=== PATIENT | male | born 1990 ===

== ENCOUNTER 2022-06-30 20:02 | Inpatient (IN) | payer MEDICAID ==
[2022-06-30] MEDS ORDERED: VANCOMYCIN 1,250 MG in SODIUM CHLORIDE 0.9% 250ML 250 ML IV ONE (22:35)
[2022-06-30] MEDS ORDERED: CEFEPIME/NS 2 GM/100 ML 2 GM/100 ML BAG IV ONE (22:35)
[2022-06-30] MEDS ORDERED: SODIUM CHLORIDE 0.9% 1000 ML IV SOLN IV ONE (22:35)
[2022-06-30] MEDS ORDERED: ONDANSETRON 4 MG/2 ML INJ IV ONE (22:36)
[2022-06-30] MEDS ORDERED: MORPHINE 4 MG/1 ML INJ IV ONE (22:36)
--- NOTE | 2022-06-30 22:42 | Emergency Department Report ---
ED General Adult HPI - General Chief complaint: Nausea/Vomiting/Diarrhea Stated complaint: NAUSEA, FEVER Time Seen by Provider: 06/30/22 21:48 Source: family (Verbal report received from family.), EMS ( EMS documentation not available at time of chart dictation ), RN notes reviewed Mode of arrival: Stretcher Limitations: Altered Mental Status, Physical Limitation - History of Present Illness Initial comments: This patient is a 31-year-old gentleman. 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 The patient was admitted to [facility], on October 22, as an out of hospital cardiac arrest from presumed overdose. It is not known if the overdose was deliberate, or accidental. The patient stayed in the hospital for 8 months, and as per family, had a complicated hospital course. He reportedly had a blood clot in one of his upper extremities, had a tracheostomy and feeding tube placed. Family uncertain as to COVID vaccination status. As per family, patient has had sepsis, complicated by pneumonia, uncertain what cultures demonstrated. Patient has been home from [place] with family, since last week. Current home medications include diltiazem, Depakote, phenytoin, Reglan, omeprazole, aspirin, lacosamide, topiramate, eliquis, multivitamin. History obtained from family member. Apparently, the patient has been having tachycardia at home, with a fever to 103 degrees, and had relatively low blood pressure, in the high 90s. This is as per family. Family also feels like abdomen is more distended. The patient is nonverbal, and not able to describe the qualitative nature of symptoms, exacerbating factors relieving factors or aggravating factors. Family also endorses that they feel that he may have been inappropriately discharged from his hospital, as currently, the home services that are supposed to be in place for this patient, are not currently in place -: This afternoon Consistency: intermittent Improves with: none Worsens with: none - Related Data Allergies Allergy/AdvReac Type Severity Reaction Status Date / Time shellfish derived Allergy Hives Verified 06/30/22 21:25 ED Review of Systems ROS: Stated complaint: NAUSEA, FEVER Other details as noted in HPI Comment: Unobtainable due to pts medical conditions Constitutional: chills, fever Gastrointestinal: as per HPI ED Physical Exam - General Limitations: Altered Mental Status, Physical Limitation General appearance: obtunded, other (Mental status at baseline as per) - Head Head exam: Present: atraumatic, normocephalic - Eye Eye exam: Present: normal appearance - ENT ENT exam: Present: normal exam, normal orophraynx, mucous membranes moist, normal external ear exam, other (Tracheostomy in place.) - Neck Neck exam: Present: normal inspection. Absent: tenderness, meningismus - Respiratory Respiratory exam: Present: rhonchi. Absent: respiratory distress - Cardiovascular Cardiovascular Exam: Present: normal rhythm, tachycardia, normal heart sounds. Absent: bradycardia, irregular rhythm, systolic murmur, diastolic murmur, rubs, gallop - GI/Abdominal GI/Abdominal exam: Present: soft, distended, other (Feeding tube in place). Absent: tenderness, guarding, rebound, rigid, pulsatile mass - Rectal Rectal exam: Present: normal inspection - exam: Present: normal inspection External exam: Present: normal external exam - Extremities Exam Extremities exam: Present: normal inspection, other (2+ pulses noted in the bilateral upper and lower extremities. There is no palpable cord. negative Homans sign. Muscular compartments are soft. The pelvis is stable.). Absent: calf tenderness - Back Exam Back exam: Present: normal inspection. Absent: tenderness, CVA tenderness (R), CVA tenderness (L), paraspinal tenderness, vertebral tenderness - Neurological Exam Neurological exam: Present: other (The patient is nonverbal. Patient's eyes open spontaneously. The patient has anoxic brain injury.) - Psychiatric Psychiatric exam: Present: other (Patient is nonverbal) - Skin Skin exam: Present: warm, other (Pressure wounds noted on the back/scapula). Absent: rash ED Course Vital Signs 06/30/22 06/30/22 06/30/22 21:15 21:20 21:23 Temperature 98.6 F Pulse Rate 71 80 Respiratory 19 18 Rate Blood Pressure Blood Pressure 107/78 [Right] O2 Sat by Pulse 96 99 94 Oximetry O2 Sat by Pulse Oximetry [ Assessment] 06/30/22 06/30/22 06/30/22 21:30 21:46 22:00 Temperature Pulse Rate 81 85 81 Respiratory 20 18 19 Rate Blood Pressure 107/78 117/78 117/78 Blood Pressure [Right] O2 Sat by Pulse 100 92 95 Oximetry O2 Sat by Pulse Oximetry [ Assessment] 06/30/22 07/01/22 07/01/22 22:09 01:01 01:04 Temperature 98.1 F Pulse Rate Respiratory Rate Blood Pressure Blood Pressure [Right] O2 Sat by Pulse 96 Oximetry O2 Sat by Pulse 96 Oximetry [ Assessment] - Reevaluation(s) Reevaluation #1: 07/01/22 00:22 Differential diagnosis, including not limited to: Bacteremia, viremia, obstruction, perforation, colitis, diverticulitis, COVID-19 Assessment and plan: 31-year-old gentleman, nonverbal, history of anoxic brain injury, poor functional status at baseline, brought to the hospital by family with a family articulated complaint of fever, tachycardia, low blood pressure. Currently a full code. Long-term prognosis very poor. Obtain appropriate laboratory studies. Start IV fluids, vancomycin and cefepime. Obtain x-ray of the chest, CT scan of the abdomen pelvis. Reassess. Anticipate admission to the medical service. Defer to inpatient team to contact case management, to assist with social needs, after patient has been medically optimized. Discussed the plan of care with the family members. They are agreeable to the plan of care. All questions have been answered 07/01/22 01:45 Transaminitis reviewed and appreciated. Elevated troponin appreciated. EKG limited by motion artifact. Secondary to patient's underlying habitus, and past medical issues, we are not able to obtain a higher quality EKG. This may be a type I or type II troponin leak. I favor a type II leak. Family updated. Currently awaiting CT scan abdomen pelvis results. 07/01/22 02:20 CT scan suggests right-sided pneumonia. Family updated. They believe that transaminitis is chronic. They also believe that nonspecific bony lesions for possible multiple myeloma are chronic. To the best of family's recollection, has not been worked up for multiple myeloma. Hospital physician, Dr. Ann Villavicencio to admit to [facility] ED Medical Decision Making - Lab Data Result diagrams: 06/30/22 23:49 06/30/22 23:49 Vital Signs 06/30/22 06/30/22 06/30/22 21:15 21:20 21:23 Temperature 98.6 F Pulse Rate 71 80 Respiratory 19 18 Rate Blood Pressure Blood Pressure 107/78 [Right] O2 Sat by Pulse 96 99 94 Oximetry 06/30/22 06/30/22 06/30/22 21:30 21:46 22:00 Temperature Pulse Rate 81 85 81 Respiratory 20 18 19 Rate Blood Pressure 107/78 117/78 117/78 Blood Pressure [Right] O2 Sat by Pulse 100 92 95 Oximetry 06/30/22 22:09 Temperature 98.1 F Pulse Rate Respiratory Rate Blood Pressure Blood Pressure [Right] O2 Sat by Pulse Oximetry - EKG Data 07/01/22 01:45 EKG is limited by motion artifact. Not able to obtain higher quality EKG, secondary to underlying medical issues. - Radiology Data Radiology results: pending, report reviewed, image reviewed CHEST 1 VIEW 06/30/2022 10:46 PM INDICATION / CLINICAL INFORMATION: fever sepsis. COMPARISON: None available. FINDINGS: SUPPORT DEVICES: Satisfactory tracheostomy cannula position. HEART / MEDIASTINUM: No significant abnormality. LUNGS / PLEURA: Mild right basilar consolidation favored to represent atelectasis and questionable trace right basilar pleural effusion. No definite evidence for pneumonia. No large pleural effusion. ADDITIONAL FINDINGS: None IMPRESSION: 1. Mild right basilar consolidation favored to represent atelectasis and questionable trace right basilar pleural effusion. 2. Satisfactory tracheostomy cannula position. Signer Name: Prosper Demarco MD Signed: 06/30/2022 10:[address] ABDOMEN AND PELVIS WITH CONTRAST INDICATION / CLINICAL INFORMATION: Abdominal distention with fever. TECHNIQUE: Axial CT images were obtained through the abdomen and pelvis after IV contrast. All CT scans at this location are performed using CT dose reduction for ALARA by means of automated exposure control. COMPARISON: Chest radiograph from today FINDINGS: LOWER CHEST: Right lower lobe consolidation with enhancement and volume loss consistent with atelectasis. This involves nearly the entirety of the right lower lobe with multiple segments involved. Small right basilar pleural effusion. Left basilar subsegmental atelectasis and trace effusion. LIVER: No significant abnormality. GALLBLADDER/BILIARY: No significant abnormality or evidence for biliary obstruction. PANCREAS: No significant abnormality. SPLEEN: No significant abnormality. ADRENALS: No significant abnormality. KIDNEYS/URETERS: No urolithiasis, hydronephrosis, solid renal mass or other significant abnormality. GI: No acute bowel inflammation, obstruction or evidence for ischemia. Indwelling percutaneous gastrostomy tube appears appropriately positioned. APPENDIX: No significant abnormality. PERITONEUM: No pneumoperitoneum, free peritoneal fluid or loculated fluid collection. LYMPH NODES: No significant adenopathy. AORTA / ARTERIES: No significant abnormality. URINARY BLADDER: No significant abnormality. REPRODUCTIVE ORGANS: No significant abnormality. SKELETAL SYSTEM: Abnormal appearance of the proximal femurs and pelvis with heterogeneous corticomedullary attenuation and questionable numerous small lytic lesions. This also involves the partially visualized right humeral diaphysis. Mild T12 vertebral body height loss associated with a superior endplate Schmorl's node without pathologic fracture identified. ADDITIONAL FINDINGS: Bila teral retroareolar gynecomastia. IMPRESSION: 1. No acute abdominopelvic process. 2. Confluent multisegmental right lower lobe atelectasis and left basilar subsegmental atelectasis. Given the history of sepsis, a component of superimposed right lower lobe pneumonia may be present. 3. Trace right greater than left basilar pleural effusions. 4. Abnormal corticomedullary osseous attenuation, most notably involving the proximal femurs, with either tiny lytic lesions or profound osteopenia. The primary concern is for multiple myeloma, therefore serum laboratory correlation is recommended to exclude a monoclonal gammopathy. Signer Name: Prosper Demarco MD Signed: 07/01/2022 12:57 AM Workstation Name: [email or web address] Critical care attestation.: If time is entered above; I have spent that time in minutes in the direct care of this critically ill patient, excluding procedure time. ED Disposition Clinical Impression: History of anoxic brain injury, History of fever, Abdominal distention, Pulmonary infiltrate Disposition: ADMITTED INPATIENT Is pt being admited?: Yes Does the pt Need Aspirin: No Condition: Fair Referrals: PRIMARY CARE, [Primary Care Provider] - 3-5 Days
[2022-06-30] MEDS ORDERED: VANCOMYCIN PHARMACY TO DOSE IV SCH (23:00)
--- NOTE | 2022-06-30 23:52 | XRay Report ---
CHEST 1 VIEW 06/30/2022 10:46 PM INDICATION / CLINICAL INFORMATION: fever sepsis. COMPARISON: None available. FINDINGS: SUPPORT DEVICES: Satisfactory tracheostomy cannula position. HEART / MEDIASTINUM: No significant abnormality. LUNGS / PLEURA: Mild right basilar consolidation favored to represent atelectasis and questionable tr susan right basilar pleural effusion. No definite evidence for pneumonia. No large pleural effusion. ADDITIONAL FINDINGS: None IMPRESSION: 1. Mild right basilar consolidation favored to represent atelectasis and questionable trace right bas ilar pleural effusion. 2. Satisfactory tracheostomy cannula position. Signer Name: Prosper Demarco MD Signed: 06/30/2022 11:47 PM Workstation Name: [email or web address]
[2022-07-01 00:14] LABS: Basophils # (Auto) 0.1 K/mm3 (0.0-0.1); Basophils % (Auto) 0.4 % (0.0-1.8); Eosinophils # (Auto) 0.1 K/mm3 (0.0-0.4); Eosinophils % (Auto) 0.7 % (0.0-4.3); Hematocrit 33.5 % (35.5-45.6); Lymphocytes # (Auto) 2.7 K/mm3 (1.2-5.4); Lymphocytes % (Auto) 14.4 % (13.4-35.0); Mean Corpuscular HGB Conc 33 % (32-34); Mean Corpuscular Volume 91 fl (84-94); Monocytes # (Auto) 2.9 K/mm3 (0.0-0.8); Monocytes % (Auto) 15.8 % (0.0-7.3); Red Blood Count 3.67 M/mm3 (3.65-5.03)
[2022-07-01 00:24] LABS: INR 1.14 (0.87-1.13)
[2022-07-01 00:25] LABS: Partial Thromboplastin Time 33.7 Sec. (24.2-36.6)
[2022-07-01 00:40] LABS: Alanine Aminotransferase 135 units/L (7-56); Albumin 3.4 g/dL (3.9-5); Blood Urea Nitrogen 13 mg/dL (9-20); Calcium 10.2 mg/dL (8.4-10.2); Hemolysis Index 99
[2022-07-01 00:41] LABS: BUN/Creatinine Ratio 22
[2022-07-01 01:13] LABS: Platelet Count 471 K/mm3 (140-440)
--- NOTE | 2022-07-01 02:01 | Cat Scan Report ---
CT ABDOMEN AND PELVIS WITH CONTRAST INDICATION / CLINICAL INFORMATION: Abdominal distention with fever. TECHNIQUE: Axial CT images were obtained through the abdomen and pelvis after IV contrast. All CT sc ans at this location are performed using CT dose reduction for ALARA by means of automated exposure c ontrol. COMPARISON: Chest radiograph from today FINDINGS: LOWER CHEST: Right lower lobe consolidation with enhancement and volume loss consistent with atelecta sis. This involves nearly the entirety of the right lower lobe with multiple segments involved. Small right basilar pleural effusion. Left basilar subsegmental atelectasis and trace effusion. LIVER: No significant abnormality. GALLBLADDER/BILIARY: No significant abnormality or evidence for biliary obstruction. PANCREAS: No significant abnormality. SPLEEN: No significant abnormality. ADRENALS: No significant abnormality. KIDNEYS/URETERS: No urolithiasis, hydronephrosis, solid renal mass or other significant abnormality. GI: No acute bowel inflammation, obstruction or evidence for ischemia. Indwelling percutaneous gastro stomy tube appears appropriately positioned. APPENDIX: No significant abnormality. PERITONEUM: No pneumoperitoneum, free peritoneal fluid or loculated fluid collection. LYMPH NODES: No significant adenopathy. AORTA / ARTERIES: No significant abnormality. URINARY BLADDER: No significant abnormality. REPRODUCTIVE ORGANS: No significant abnormality. SKELETAL SYSTEM: Abnormal appearance of the proximal femurs and pelvis with heterogeneous corticomedu llary attenuation and questionable numerous small lytic lesions. This also involves the partially vis ualized right humeral diaphysis. Mild T12 vertebral body height loss associated with a superior endpl ate Schmorl's node without pathologic fracture identified. ADDITIONAL FINDINGS: Bilateral retroareolar gynecomastia. IMPRESSION: 1. No acute abdominopelvic process. 2. Confluent multisegmental right lower lobe atelectasis and left basilar subsegmental atelectasis. G iven the history of sepsis, a component of superimposed right lower lobe pneumonia may be present. 3. Trace right greater than left basilar pleural effusions. 4. Abnormal corticomedullary osseous attenuation, most notably involving the proximal femurs, with ei ther tiny lytic lesions or profound osteopenia. The primary concern is for multiple myeloma, therefor e serum laboratory correlation is recommended to exclude a monoclonal gammopathy. Signer Name: Prosper Demarco MD Signed: 07/01/2022 1:57 AM Workstation Name: [id number]
[2022-07-01] MEDS ORDERED: ONDANSETRON 4 MG/2 ML INJ IV PRN (02:23)
[2022-07-01] MEDS ORDERED: NALOXONE 0.4 MG/1 ML INJ IV PRN (02:23)
[2022-07-01 02:45] LABS: Chol/HDL Ratio 4.68 %; HDL Cholesterol 35 mg/dL (40-59); LDL Cholesterol,Direct 94 mg/dL (50-130)
[2022-07-01] MEDS ORDERED: MORPHINE 4 MG/1 ML INJ IV PRN (04:39)
[2022-07-01] MEDS ORDERED: MAGNESIUM HYDROXIDE (MOM) ORAL LIQD UDC PO PRN (04:39)
[2022-07-01] MEDS ORDERED: SODIUM CHLORIDE 0.9% 1000 ML 1,000 ML IV SCH (04:45)
--- NOTE | 2022-07-01 04:55 | History and Physical Report ---
History of Present Illness Date of examination: 07/01/22 Date of admission: 07/01/22 02:23 Chief complaint: Fever History of present illness: 20-year-old male with history of anoxic brain injury who is PEG tube dependent and trach dependent presenting in the emergency room today accompanied by family with a complaint of fever. Patient recently moved from [place] to [place]. He was admitted at [facility] sometime in October 2021. Patient was said to have spent about 8 months in the hospital. His hospital course was complicated by sepsis, pneumonia. He has been home from [place] for about a week ago started having fever over the past few days. Most of the history was obtained from family were by the bedside. Patient is said to have been having some nausea and vomiting and abdominal pain. He had a temperature of about 103 F. There has been no diarrhea. No hematuria or dysuria. Patient's COVID immunization status is unknown. Work-up in the emergency room today, labs were significant for leukocytosis of 18.5, elevated liver enzymes with AST of 69 and ALT of 135, troponin 0.128. Chest x-ray significant for mild right basilar consolidation favored to represent atelectasis and questionable trace right basilar pleural effusion. Abdomen/Pelvis CT : 1. No acute abdominopelvic process. 2. Confluent multisegmental right lower lobe atelectasis and left basilar subsegmental atelectasis. Given the history of sepsis, a component of superimposed right lower lobe pneumonia may be present. 3. Trace right greater than left basilar pleural effusions. 4. Abnormal corticomedullary osseous attenuation, most notably involving the proximal femurs, with either tiny lytic lesions or profound osteopenia. The primary concern is for multiple myeloma, therefore serum laboratory correlation is recommended to exclude a monoclonal gammopathy. Patient has been placed on empiric IV antibiotics and IV fluid. Past History Past Medical History: other (H/O Drug Overdose) Past Surgical History: Other (Peg tube placement,Trach placement) Social history: no significant social history Family history: no significant family history Medications and Allergies Allergies Allergy/AdvReac Type Severity Reaction Status Date / Time shellfish derived Allergy Hives Verified 06/30/22 21:25 Active Meds: Active Medications Acetaminophen (Acetaminophen 325 Mg Tab) 650 mg PO Q4H PRN PRN Reason: Pain MILD(1-3)/Fever >100.5/BOWER Heparin Sodium (Porcine) (Heparin 5,000 Unit/1 Ml Vial) 5,000 unit SUB-Q Q8HR SHILA Sodium Chloride (Nacl 0.9% 1000 Ml) 1,000 mls @ 125 mls/hr IV DIRECT SHILA Cefepime HCl (Cefepime/Ns 2 Gm/100 Ml) 2 gm in 100 mls @ 200 mls/hr IV Q8H SHILA; Protocol Magnesium Hydroxide (Magnesium Hydroxide (Mom) Oral Liqd Udc) 30 ml PO Q4H PRN PRN Reason: Constipation Morphine Sulfate (Morphine 2 Mg/1 Ml Inj) 2 mg IV Q4H PRN PRN Reason: Pain, Moderate (4-6) Morphine Sulfate (Morphine 4 Mg/1 Ml Inj) 4 mg IV Q4H PRN PRN Reason: Pain , Severe (7-10) Naloxone HCl (Naloxone 0.4 Mg/1 Ml Inj) 0.1 mg IV Q2MIN PRN PRN Reason: Res Rate </= 8 or 02 SAT < 92% Ondansetron HCl (Ondansetron 4 Mg/2 Ml Inj) 4 mg IV Q8H PRN PRN Reason: Nausea And Vomiting Sodium Chloride (Sodium Chloride 0.9% 10 Ml Flush Syringe) 10 ml IV BID SHILA Sodium Chloride (Sodium Chloride 0.9% 10 Ml Flush Syringe) 10 ml IV PRN PRN PRN Reason: LINE FLUSH Review of Systems ROS unobtainable: due to mental status Exam - Constitutional Vitals: Temp Pulse Resp BP Pulse Ox 98.1 F 90 21 118/77 100 06/30/22 22:09 07/01/22 04:30 07/01/22 04:30 07/01/22 04:30 07/01/22 04:39 General appearance: Present: no acute distress, well-nourished, other (On Trach) - EENT Eyes: Present: PERRL, EOM intact. Absent: scleral icterus ENT: hearing intact, clear oral mucosa, dentition normal - Neck Neck: Present: supple, normal ROM - Respiratory Respiratory effort: normal Respiratory: bilateral: diminished - Cardiovascular Rhythm: regular Heart Sounds: Present: S1 & S2. Absent: gallop, systolic murmur, diastolic murmur, rub, click - Extremities Extremities: no ischemia, pulses intact, pulses symmetrical, No edema, normal temperature, normal color, Full ROM Peripheral Pulses: within normal limits - Abdominal General gastrointestinal: Present: soft, non-tender, non-distended, normal bowel sounds, other (Peg tube in place). Absent: mass - Integumentary Integumentary: Present: clear, warm, dry, normal turgor. Absent: rash - Musculoskeletal Musculoskeletal: strength equal bilaterally - Psychiatric Psychiatric: appropriate mood/affect, intact judgment & insight, memory intact, cooperative - Neurologic Neurologic: CNII-XII intact, no focal deficits, moves all extremities HEART Score - HEART Score Troponin: Troponin T 0.128 ng/mL (0.00-0.029) H* 06/30/22 23:49 Results - Labs CBC & Chem 7: 06/30/22 23:49 06/30/22 23:49 Labs: Abnormal lab results 06/30/22 06/30/22 06/30/22 Range/Units 23:49 23:49 23:49 WBC 18.5 H (4.5-11.0) K/mm3 Hgb 11.0 L (11.8-15.2) gm/dl Hct 33.5 L (35.5-45.6) % RDW 13.0 L (13.2-15.2) % Plt Count 471 H (140-440) K/mm3 [place] % (Auto) 15.8 H (0.0-7.3) % [place] # (Auto) 2.9 H (0.0-0.8) K/mm3 Seg Neutrophils # 12.7 H (1.8-7.7) K/mm3 PT 16.3 H (12.2-14.9) Sec. INR 1.14 H (0.87-1.13) Carbon Dioxide 19 L (22-30) mmol/L Creatinine 0.6 L (0.8-1.3) mg/dL Glucose 123 H (75-100) mg/dL AST 69 H (5-40) units/L ALT 135 H (7-56) units/L Alkaline Phosphatase 147 H (35-129) units/L Troponin T 0.128 H* (0.00-0.029) ng/mL Albumin 3.4 L (3.9-5) g/dL HDL Cholesterol 35 L (40-59) mg/dL Acetaminophen (10.0-30.0) ug/mL 07/01/22 Range/Units 00:00 WBC (4.5-11.0) K/mm3 Hgb (11.8-15.2) gm/dl Hct (35.5-45.6) % RDW (13.2-15.2) % Plt Count (140-440) K/mm3 [place] % (Auto) (0.0-7.3) % [place] # (Auto) (0.0-0.8) K/mm3 Seg Neutrophils # (1.8-7.7) K/mm3 PT (12.2-14.9) Sec. INR (0.87-1.13) Carbon Dioxide (22-30) mmol/L Creatinine (0.8-1.3) mg/dL Glucose (75-100) mg/dL AST (5-40) units/L ALT (7-56) units/L Alkaline Phosphatase (35-129) units/L Troponin T (0.00-0.029) ng/mL Albumin (3.9-5) g/dL HDL Cholesterol (40-59) mg/dL Acetaminophen 5.0 L (10.0-30.0) ug/mL Assessment and Plan Assessment: 1. Sepsis 2. Pneumonia 3. History of anoxic brain injury 4. History of drug overdose 5. Elevated liver enzymes 6. History of seizures 7. Trach and PEG tube dependent Plan: 1. Patient admitted and placed on empiric IV antibiotics and IV fluid. 2. We will await culture results 3. We will resume routine home medications 4. We will place on seizure precautions DVT prophylaxis: Subcutaneous heparin CODE STATUS: Full code
[2022-07-01] MEDS ORDERED: VANCOMYCIN PHARMACY TO DOSE IV SCH (05:00)
[2022-07-01 05:55] LABS: Hepatitis B Surface Antigen Non-Reactive (Negative); Hepatitis C Virus Antibody Non-Reactive (NonReactive)
[2022-07-01] MEDS: HEPARIN 5,000 UNIT/1 ML VIAL SUB-Q SCH ×2 (06:32→15:02)
[2022-07-01] MEDS ORDERED: DEXTROSE 5% IN WATER 1,000 ML IV SCH (08:00)
[2022-07-01 12:11] LABS: Amorphous Crystals,Urine 1+; Bacteria,Urine 2+ /HPF (Negative); Bilirubin,Urine NEG (Negative); Blood,Urine NEG (Negative); Color,Urine Yellow (Yellow); Mucus,Urine FEW /HPF; Protein,Urine <15 mg/dL mg/dL (Negative); Sperm,Urine FEW /HPF (NP); WBC,Urine < 1.0 /HPF (0.0-6.0)
[2022-07-01] MEDS: CEFEPIME/NS 2 GM/100 ML 2 GM/100 ML BAG IV SCH (14:47)
[2022-07-01] MEDS: MORPHINE 2 MG/1 ML INJ IV PRN (14:54)
[2022-07-01] MEDS ORDERED: VANCOMYCIN/NS 1 GM/250 ML 1 GM/250 ML BAG IV SCH (15:00)
[2022-07-01] MEDS: VANCOMYCIN/NS 1 GM/250 ML 1 GM/250 ML BAG IV SCH ×2 (15:20→21:00)
--- NOTE | 2022-07-01 15:46 | Event Note ---
Date: 07/01/22 Patient was evaluated, he was found to be hemodynamically stable. Patient required restraints given his metabolic encephalopathy. Patient is only oriented to self. Patient was found to be unremarkable for coronavirus PCR.
--- NOTE | 2022-07-01 15:48 | Event Note ---
Date: 07/01/22 Patient was evaluated this morning, and he was found to be hemodynamically stable. Additional information is required from the patient's family regarding his baseline. Patient was found to be unremarkable for coronavirus PCR. Supplemental oxygen will continue to be weaned. Continue with current antibiotic course.
[2022-07-01] MEDS ORDERED: PHENYTOIN PO SCH (17:45)
[2022-07-01] MEDS ORDERED: DILTIAZEM HCL 120 MG PO SCH ×2 (17:45→18:00)
[2022-07-01] MEDS ORDERED: NON-FORMULARY EACH (Metoclopramide Hcl [Reglan Tab] 5 MG Tablet) PO SCH (17:45)
[2022-07-01] MEDS ORDERED: HYPROMELLOSE 0.5% OPHTH SOLN 15 ML OU PRN (18:08)
[2022-07-01] MEDS ORDERED: METOPROLOL SUCCINATE XL 100 MG TAB PO SCH (20:00)
[2022-07-01] MEDS: SCOPOLAMINE TRANSDERMAL PATCH 72 HR TD SCH ×2 (21:00→22:39)
[2022-07-01] MEDS: ASPIRIN EC 81 MG TAB PO SCH (21:09)
[2022-07-01] MEDS ORDERED: NON-FORMULARY EACH (Lacosamide [Vimpat] 200 MG Tablet) PO SCH (22:00)
[2022-07-01] MEDS ORDERED: NON-FORMULARY EACH (Levetiracetam [Keppra Tab] 750 MG Tablet) PO SCH (22:00)
[2022-07-01] MEDS ORDERED: NON-FORMULARY EACH (Apixaban 5 MG Tablet) PO SCH (22:00)
[2022-07-01] MEDS ORDERED: NON-FORMULARY EACH (Omeprazole [Omeprazole] 40 MG Capsule.Dr) PO SCH (22:00)
[2022-07-01] MEDS: dilTIAZem 60 MG TAB PO SCH (22:24)
[2022-07-01] MEDS: levETIRAcetam 500 MG TAB PO SCH (22:25)
[2022-07-01] MEDS: LACOSAMIDE 100 MG TAB PO SCH (22:27)
[2022-07-01] MEDS: APIXABAN 5 MG TAB PO SCH (22:27)
[2022-07-01] MEDS: VALPROIC ACID 250 MG/5 ML ORAL LIQD PO SCH (22:28)
[2022-07-01] MEDS: METOCLOPRAMIDE 10 MG/10 ML ORAL LIQD PO SCH (22:30)
[2022-07-01] MEDS: PHENYTOIN 100 MG/4 ML ORAL.LIQD FEEDTUBE SCH (22:32)
[2022-07-01] MEDS: TOPIRAMATE TAB 200 MG TAB PO SCH (22:33)
[2022-07-02] MEDS: CEFEPIME/NS 2 GM/100 ML 2 GM/100 ML BAG IV SCH ×5 (00:23→23:24)
[2022-07-02] MEDS: ACETAMINOPHEN 325 MG TAB PO PRN ×2 (01:46→23:10)
[2022-07-02] MEDS: VANCOMYCIN/NS 1 GM/250 ML 1 GM/250 ML BAG IV SCH ×3 (04:41→19:47)
[2022-07-02] MEDS: METOCLOPRAMIDE 10 MG/10 ML ORAL LIQD PO SCH (06:23)
[2022-07-02] MEDS: PHENYTOIN 100 MG/4 ML ORAL.LIQD FEEDTUBE SCH ×3 (06:24→22:10)
[2022-07-02] MEDS: dilTIAZem 60 MG TAB PO SCH (06:35)
[2022-07-02] MEDS ORDERED: PANTOPRAZOLE 40 MG TAB PO SCH (07:30)
[2022-07-02] MEDS: VALPROIC ACID 250 MG/5 ML ORAL LIQD PO SCH ×3 (08:09→22:10)
[2022-07-02 08:21] LABS: Blood Urea Nitrogen 10 mg/dL (9-20); Calcium 9.5 mg/dL (8.4-10.2); Hemolysis Index 0
[2022-07-02 08:25] LABS: BUN/Creatinine Ratio 17
[2022-07-02 08:50] LABS: Hematocrit 30.4 % (35.5-45.6); Hemoglobin 9.9 gm/dl (11.8-15.2); Mean Corpuscular HGB Conc 33 % (32-34); Mean Corpuscular Volume 91 fl (84-94); Platelet Count 389 K/mm3 (140-440); Red Blood Count 3.33 M/mm3 (3.65-5.03); Red Cell Distribution Width 12.9 % (13.2-15.2)
[2022-07-02] MEDS: levETIRAcetam 500 MG TAB PO SCH (09:02)
[2022-07-02] MEDS: ASPIRIN EC 81 MG TAB PO SCH (09:02)
[2022-07-02] MEDS: APIXABAN 5 MG TAB PO SCH (09:02)
[2022-07-02] MEDS: LACOSAMIDE 100 MG TAB PO SCH ×2 (09:02→22:07)
[2022-07-02 09:51] LABS: Band Neutrophils # (Manual) 0.2 K/mm3; Basophils % (Manual) 0 % (0.0-1.8); Total Cells Counted 100
[2022-07-02 09:56] LABS: Platelet Estimate Consistent w Auto; RBC Morphology Normal
[2022-07-02] MEDS ORDERED: METOPROLOL SUCCINATE XL 50 MG TAB PO SCH (10:00)
[2022-07-02] MEDS: MULTIVITAMIN / MINERAL ORAL LIQUID 15 ML PO SCH (10:03)
[2022-07-02] MEDS: TOPIRAMATE TAB 200 MG TAB PO SCH ×2 (10:03→22:08)
[2022-07-02] MEDS: METOCLOPRAMIDE 10 MG/10 ML ORAL LIQD FEEDTUBE SCH ×2 (10:30→18:47)
[2022-07-02] MEDS: MORPHINE 2 MG/1 ML INJ IV PRN (11:30)
--- NOTE | 2022-07-02 11:42 | Consultation ---
History of Present Illness - Reason for Consult Consult date: 07/02/22 abx management Requesting physician: EDWINA CHAKRABORTY - History of Present Illness The patient is a 31-year-old male with anoxic brain injury, s/p PEG tube, tracheostomy, recently moved to [place] from [place], has a history of prolonged hospitalization while in [place] was admitted due to fever. Nonverbal at baseline. Upon evaluation in the ER, noted to have leukocytosis, mild tr ansaminitis. Chest x-ray did not reveal any obvious pneumonia, showed some atelectasis. CT abdomen and pelvis did not reveal any acute intra-abdominal process, showed possible tiny lytic lesions versus osteopenia in proximal femurs. ID was consulted for possible sepsis. Review of Systems: Unable to obtain due to mental status Past History Past Medical History: other (H/O Drug Overdose) Past Surgical History: Other (Peg tube placement,Trach placement) Social history: no significant social history Family history: no significant family history Medications and Allergies Allergies Allergy/AdvReac Type Severity Reaction Status Date / Time shellfish derived Allergy Hives and Verified 07/01/22 11:30 shortness of breath Home Medications Medication Instructions Recorded Confirmed Last Taken Type Acetaminophen [Children's Pain 640 mg PO Q4H PRN 07/01/22 07/01/22 06/30/22 History Relief] Apixaban [Eliquis] 5 mg PO BID 07/01/22 07/01/22 06/30/22 History Aspirin EC [Halfprin EC] 81 mg PO QDAY 07/01/22 07/01/22 06/30/22 History Lacosamide [Vimpat] 200 mg PO BID 07/01/22 07/01/22 06/30/22 History Metoclopramide HCl [Reglan TAB] 5 mg PO Q8H 07/01/22 07/01/22 06/30/22 History Metoprolol Xl [Metoprolol 100 mg PO QDAY 07/01/22 07/01/22 06/30/22 History SUCCINATE ER TAB] Multivit-Minerals/Ferrous Gluc 9 mg PO QDAY 07/01/22 07/01/22 06/30/22 History [Centrum Multivit-Mineral Liq] Omeprazole 40 mg PO BID 07/01/22 07/01/22 06/30/22 History Phenytoin [Dilantin] 100 mg PO Q8H 07/01/22 07/01/22 06/30/22 History Topiramate [Topamax] 200 mg PO BID 07/01/22 07/01/22 06/30/22 History VALPROIC ACID Liq [DepaKENE Liq] 1,000 mg PO Q8H 07/01/22 07/01/22 06/30/22 History cephALEXin [Keflex] 500 mg PO BID 07/01/22 07/01/22 06/30/22 History dilTIAZem HCL [Diltiazem HCl] 120 mg PO Q6H 07/01/22 07/01/22 06/30/22 History levETIRAcetam [Keppra TAB] 1,500 mg PO BID 07/01/22 07/01/22 06/30/22 History Active Meds: Active Medications Acetaminophen (Acetaminophen 325 Mg Tab) 650 mg PO Q4H PRN PRN Reason: Pain MILD(1-3)/Fever >100.5/BOWER Last Admin: 07/02/22 01:46 Dose: 650 mg Apixaban (Apixaban 5 Mg Tab) 5 mg FEEDTUBE Q12HR SHILA Artificial Tears (Hypromellose 0.5% Ophth Soln 15 Ml) 2 drops OU Q4H PRN PRN Reason: Dry Eye(s) Aspirin (Aspirin 81 Mg Tab Chew) 81 mg FEEDTUBE QDAY SHILA Diltiazem HCl (Diltiazem 60 Mg Tab) 120 mg FEEDTUBE Q8HR SHILA Cefepime HCl (Cefepime/Ns 2 Gm/100 Ml) 2 gm in 100 mls @ 200 mls/hr IV Q8H SHILA; Protocol Last Admin: 07/02/22 08:10 Dose: 200 mls/hr Vancomycin HCl (Vancomycin/Ns 1 Gm/250 Ml) 1 gm in 250 mls @ 166.667 mls/hr IV Q8H SHILA Last Admin: 07/02/22 11:30 Dose: 166.667 mls/hr Lacosamide (Lacosamide 100 Mg Tab) 200 mg PO Q12HR SHILA Last Admin: 07/02/22 09:02 Dose: 200 mg Levetiracetam (Levetiracetam 500 Mg/5 Ml Oral Liqd) 1,500 mg FEEDTUBE BID SHILA Magnesium Hydroxide (Magnesium Hydroxide (Mom) Oral Liqd Udc) 30 ml PO Q4H PRN PRN Reason: Constipation Last Admin: 07/02/22 04:05 Dose: 30 ml Metoclopramide HCl (Metoclopramide 10 Mg/10 Ml Oral Liqd) 5 mg FEEDTUBE Q8H [facility] Last Admin: 07/02/22 10:30 Dose: 5 mg Metoprolol Tartrate (Metoprolol Tartrate 50 Mg Tab) 50 mg FEEDTUBE DAILY [facility] Morphine Sulfate (Morphine 2 Mg/1 Ml Inj) 2 mg IV Q4H PRN PRN Reason: Pain, Moderate (4-6) Last Admin: 07/02/22 11:30 Dose: 2 mg Morphine Sulfate (Morphine 4 Mg/1 Ml Inj) 4 mg IV Q4H PRN PRN Reason: Pain , Severe (7-10) Naloxone HCl (Naloxone 0.4 Mg/1 Ml Inj) 0.1 mg IV Q2MIN PRN PRN Reason: Res Rate </= 8 or 02 SAT < 92% Ondansetron HCl (Ondansetron 4 Mg/2 Ml Inj) 4 mg IV Q8H PRN PRN Reason: Nausea And Vomiting Phenytoin (Phenytoin 100 Mg/4 Ml Oral.Liqd) 100 mg FEEDTUBE Q8HR [facility] Last Admin: 07/02/22 06:24 Dose: 100 mg Scopolamine (Scopolamine Transdermal Patch 72 Hr) 1 each TD Q3D [facility] Last Admin: 07/01/22 22:39 Dose: 1 each Sodium Chloride (Sodium Chloride 0.9% 10 Ml Flush Syringe) 10 ml IV BID [facility] Last Admin: 07/02/22 09:03 Dose: 10 ml Sodium Chloride (Sodium Chloride 0.9% 10 Ml Flush Syringe) 10 ml IV PRN PRN PRN Reason: LINE FLUSH Topiramate (Topiramate Tab 200 Mg Tab) 200 mg PO BID [facility] Last Admin: 07/02/22 10:03 Dose: 200 mg Valproic Acid (Valproic Acid 250 Mg/5 Ml Oral Liqd) 1,000 mg PO Q8HR [facility] Last Admin: 07/02/22 08:09 Dose: 1,000 mg Physical Examination - Physical Exam Narrative exam: Physical Exam: Constitutional: Unresponsive, nonverbal Head, Ears, Nose: Normocephalic, atraumatic. External ears, nose normal Eyes: Conjunctivae/corneas clear. No icterus. No ptosis. Neck: Trach + Oral: Unable to examine Cardiovascular: S1, S2 + Respiratory: Good air entry, clear to auscultation bilaterally GI: Soft, non-tender; bowel sounds normal. No peritoneal signs. G-tube + Musculoskeletal: No pedal edema, no cyanosis. Skin: No rash or abscess Hem/Lymphatic: No palpable cervical or supraclavicular nodes. No lymphangitis Psych: Unresponsive Neurological: Unresponsive - Constitutional Vitals: Vital Signs Temp Pulse Resp BP Pulse Ox 98.3 F 89 16 113/54 99 07/02/22 06:10 07/02/22 09:02 07/02/22 06:10 07/02/22 06:35 07/02/22 06:10 Temperature -Last 24 Hours Temperature 98.3 F Temperature 98.7 F Temperature 99.2 F Temperature 99.7 F Results - Labs CBC & Chem 7: 07/02/22 07:03 07/02/22 07:03 Labs: Abnormal lab results 06/30/22 07/02/22 07/02/22 Range/Units 09:45 07:03 07:03 RBC 3.33 L (3.65-5.03) M/mm3 Hgb 9.9 L (11.8-15.2) gm/dl Hct 30.4 L (35.5-45.6) % RDW 12.9 L (13.2-15.2) % Monocytes % (Manual) 21.0 H (0.0-7.3) % Monocytes # (Manual) 2.0 H (0.0-0.8) K/mm3 D-Dimer 265.15 H (0-234) ng/mlDDU Potassium (3.6-5.0) mmol/L Creatinine (0.8-1.3) mg/dL Urine pH 9.0 H (5.0-7.0) 07/02/22 Range/Units 07:03 RBC (3.65-5.03) M/mm3 Hgb (11.8-15.2) gm/dl Hct (35.5-45.6) % RDW (13.2-15.2) % Monocytes % (Manual) (0.0-7.3) % Monocytes # (Manual) (0.0-0.8) K/mm3 D-Dimer (0-234) ng/mlDDU Potassium 3.5 L (3.6-5.0) mmol/L Creatinine 0.6 L (0.8-1.3) mg/dL Urine pH (5.0-7.0) - Imaging and Cardiology Chest x-ray: report reviewed, image reviewed (trach +, ?mild atelectasis) Assessment and Plan Cultures: 06/30/2022 blood culture: No growth A/P: 31-year-old male with anoxic brain injury, s/p PEG tube, tracheostomy, recently moved to [place] from [place], has a history of prolonged hospitalization while in [place] was admitted due to fever. Nonverbal at baseline: #SIRS versus sepsis: Etiology unclear. ? Tracheitis. Chest x-ray without any obvious pneumonia. UA does not show any significant pyuria. WBC is better. Procalcitonin 0.33. No acute intra-abdominal infectious process noted on CT. No skin issues per RN. #Anoxic brain injury/encephalopathy #Elevated LFTs Recs: Continue empiric cefepime, vancomycin for now Follow-up cultures Tracheostomy care and suctioning as needed Monitor LFTs Gloria Su MD, FACP, [facility] ([facility] O: [phone] F: [phone] C: [phone]
[2022-07-02] MEDS: dilTIAZem 60 MG TAB FEEDTUBE SCH ×2 (13:48→22:06)
--- NOTE | 2022-07-02 18:33 | Progress Note ---
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 Patient recently moved from [place] to [place]. He was admitted at [facility] sometime in October 2021 and discharged last week and transported to [place] straight from hospital to live with his parents here. Patient was said to have spent about 8 months in the hospital. His hospital course was complicated by sepsis, pneumonia. He has been home from [place] for about a week ago started having fever over the past few days. Most of the history was obtained from family were by the bedside. Patient is said to have been having some nausea and vomiting and abdominal pain. He had a temperature of about 103 F. There has been no diarrhea. No hematuria . Patient's COVID immunization status is unknown. Work-up in the emergency room-labs were significant for leukocytosis of 18.5, elevated liver enzymes with AST of 69 and ALT of 135, troponin 0.128. Chest x- ray significant for mild right basilar consolidation favored to represent atelectasis and questionable trace right basilar pleural effusion. Abdomen/Pelvis CT : 1. No acute abdominopelvic process. 2. Confluent multisegmental right lower lobe atelectasis and left basilar subsegmental atelectasis. Given the history of sepsis, a component of superimposed right lower lobe pneumonia may be present. 3. Trace right greater than left basilar pleural effusions. 4. Abnormal corticomedullary osseous attenuation, most notably involving the proximal femurs, with either tiny lytic lesions or profound osteopenia. The primary concern is for multiple myeloma, therefore serum laboratory correlation is recommended to exclude a monoclonal gammopathy. Patient is admitted for sepsis, started on IV antibiotics after cultures and ID consulted. Assessment: 1. Sepsis with high fever, vomiting and leukocytosis soon after discharge from the hospital after a long stay 2. Possible aspiration/pneumonia 3. History of anoxic brain injury, chronic vegetative state, nonverbal, unresponsive 4. History of cardiac arrest from illicit drug overdose 5. Elevated liver enzymes 6. History of seizures 7. Trach and PEG tube dependent, on home O2 Plan: 1. Patient admitted and placed on empiric IV antibiotics and IV fluid. 2. We will await culture results, ID consulted 3. We will resume routine home medications 4. We will place on seizure precautions DVT prophylaxis: Subcutaneous heparin CODE STATUS: Full code History Interval history: T-max 99.4, leukocytosis resolving on empiric antibiotic therapy. No acute events reported. Tolerating trach collar and tube feeds. Remains unresponsive/nonverbal. ID following. Cultures pending. Hospitalist Physical - Constitutional Vitals: Temp Pulse Resp BP Pulse Ox 97.9 F 85 20 108/54 98 07/02/22 11:30 07/02/22 13:48 07/02/22 11:30 07/02/22 13:48 07/02/22 16:00 General appearance: Present: no acute distress, well-nourished, other (Nonmobile, chronic vegetative state) - EENT Eyes: Absent: scleral icterus, conjunctival injection ENT: clear oral mucosa - Neck Neck: Present: other (Tracheostomy with T-tube). Absent: masses or JVD - Respiratory Respiratory effort: normal Respiratory: bilateral: diminished (Course breath sounds, mild wheezes) - Cardiovascular Rhythm: regular - Extremities Extremities: No edema - Abdominal General gastrointestinal: soft, non-tender, non-distended, normal bowel sounds, other (No masses, PEG tube in place) - Integumentary Integumentary: Absent: rash - Neurologic Neurologic: other (Awake, nonverbal, unresponsive in chronic vegetative state with history of anoxic encephalopathy with foreshortening, extremities stiff/contracted in extension) HEART Score - HEART Score Troponin: Troponin T 0.128 ng/mL (0.00-0.029) H* 06/30/22 23:49 Results - Labs CBC & Chem 7: 07/03/22 03:53 07/03/22 03:53 Labs: Laboratory Last Values WBC 9.5 K/mm3 (4.5-11.0) 07/02/22 07:03 RBC 3.33 M/mm3 (3.65-5.03) L 07/02/22 07:03 Hgb 9.9 gm/dl (11.8-15.2) L 07/02/22 07:03 Hct 30.4 % (35.5-45.6) L 07/02/22 07:03 MCV 91 fl (84-94) 07/02/22 07:03 MCH 30 pg (28-32) 07/02/22 07:03 MCHC 33 % (32-34) 07/02/22 07:03 RDW 12.9 % (13.2-15.2) L 07/02/22 07:03 Plt Count 389 K/mm3 (140-440) 07/02/22 07:03 Lymph % (Auto) 14.4 % (13.4-35.0) 06/30/22 23:49 Sanders % (Auto) Enrichment Specialist 07/02/22 07:03 Eos % (Auto) 0.7 % (0.0-4.3) 06/30/22 23:49 Baso % (Auto) 0.4 % (0.0-1.8) 06/30/22 23:49 Lymph # (Auto) 2.7 K/mm3 (1.2-5.4) 06/30/22 23:49 Sanders # (Auto) 2.9 K/mm3 (0.0-0.8) H 06/30/22 23:49 Eos # (Auto) 0.1 K/mm3 (0.0-0.4) 06/30/22 23:49 Baso # (Auto) 0.1 K/mm3 (0.0-0.1) 06/30/22 23:49 Add Manual Diff Complete 07/02/22 07:03 Total Counted 100 07/02/22 07:03 Seg Neutrophils % 68.7 % (40.0-70.0) 06/30/22 23:49 Seg Neuts % (Manual) 52.0 % (40.0-70.0) 07/02/22 07:03 Band Neutrophils % 2.0 % 07/02/22 07:03 Lymphocytes % (Manual) 17.0 % (13.4-35.0) 07/02/22 07:03 Reactive Lymphs % (Man) 4.0 % 07/02/22 07:03 Monocytes % (Manual) 21.0 % (0.0-7.3) H 07/02/22 07:03 Eosinophils % (Manual) 3.0 % (0.0-4.3) 07/02/22 07:03 Basophils % (Manual) 0 % (0.0-1.8) 07/02/22 07:03 Metamyelocytes % 1.0 % 07/02/22 07:03 Myelocytes % 0 % 07/02/22 07:03 Promyelocytes % 0 % 07/02/22 07:03 Blast Cells % 0 % 07/02/22 07:03 Nucleated RBC % Not Reportable 07/02/22 07:03 Seg Neutrophils # 12.7 K/mm3 (1.8-7.7) H 06/30/22 23:49 Seg Neutrophils # Man 4.9 K/mm3 (1.8-7.7) 07/02/22 07:03 Band Neutrophils # 0.2 K/mm3 07/02/22 07:03 Lymphocytes # (Manual) 1.6 K/mm3 (1.2-5.4) 07/02/22 07:03 Abs React Lymphs (Man) 0.4 K/mm3 07/02/22 07:03 Monocytes # (Manual) 2.0 K/mm3 (0.0-0.8) H 07/02/22 07:03 Eosinophils # (Manual) 0.3 K/mm3 (0.0-0.4) 07/02/22 07:03 Basophils # (Manual) 0.0 K/mm3 (0.0-0.1) 07/02/22 07:03 Metamyelocytes # 0.1 K/mm3 07/02/22 07:03 Myelocytes # 0.0 K/mm3 07/02/22 07:03 Promyelocytes # 0.0 K/mm3 07/02/22 07:03 Blast Cells # 0.0 K/mm3 07/02/22 07:03 WBC Morphology Not Reportable 07/02/22 07:03 Hypersegmented Neuts Not Reportable 07/02/22 07:03 Hyposegmented Neuts Not Reportable 07/02/22 07:03 Hypogranular Neuts Not Reportable 07/02/22 07:03 Smudge Cells Not Reportable 07/02/22 07:03 Toxic Granulation Not Reportable 07/02/22 07:03 Toxic Vacuolation Not Reportable 07/02/22 07:03 Dohle Bodies Not Reportable 07/02/22 07:03 Pelger-Huet Anomaly Not Reportable 07/02/22 07:03 Arsh Rods Not Reportable 07/02/22 07:03 Platelet Estimate Consistent w auto 07/02/22 07:03 Clumped Platelets Not Reportable 07/02/22 07:03 Plt Clumps, EDTA Not Reportable 07/02/22 07:03 Large Platelets Not Reportable 07/02/22 07:03 Giant Platelets Not Reportable 07/02/22 07:03 Platelet Satelliting Not Reportable 07/02/22 07:03 Plt Morphology Comment Not Reportable 07/02/22 07:03 RBC Morphology Normal 07/02/22 07:03 Dimorphic RBCs Not Reportable 07/02/22 07:03 Polychromasia Not Reportable 07/02/22 07:03 Hypochromasia Not Reportable 07/02/22 07:03 Poikilocytosis Not Reportable 07/02/22 07:03 Anisocytosis Not Reportable 07/02/22 07:03 Microcytosis Not Reportable 07/02/22 07:03 Macrocytosis Not Reportable 07/02/22 07:03 Spherocytes Not Reportable 07/02/22 07:03 Pappenheimer Bodies Not Reportable 07/02/22 07:03 Sickle Cells Not Reportable 07/02/22 07:03 Target Cells Not Reportable 07/02/22 07:03 Tear Drop Cells Not Reportable 07/02/22 07:03 Ovalocytes Not Reportable 07/02/22 07:03 Helmet Cells Not Reportable 07/02/22 07:03 [place] Bodies Not Reportable 07/02/22 07:03 Rydal Rings Not Reportable 07/02/22 07:03 Zulma Cells Not Reportable 07/02/22 07:03 Bite Cells Not Reportable 07/02/22 07:03 Crenated Cell Not Reportable 07/02/22 07:03 Elliptocytes Not Reportable 07/02/22 07:03 Acanthocytes (Spur) Not Reportable 07/02/22 07:03 Rouleaux Not Reportable 07/02/22 07:03 Hemoglobin C Crystals Not Reportable 07/02/22 07:03 Schistocytes Not Reportable 07/02/22 07:03 Malaria parasites Not Reportable 07/02/22 07:03 Oz Bodies Not Reportable 07/02/22 07:03 Hem Pathologist Commnt No 07/02/22 07:03 PT 16.3 Sec. (12.2-14.9) H 06/30/22 23:49 INR 1.14 (0.87-1.13) H 06/30/22 23:49 APTT 33.7 Sec. (24.2-36.6) 06/30/22 23:49 D-Dimer 265.15 ng/mlDDU (0-234) H 07/02/22 07:03 Sodium 139 mmol/L (137-145) 07/02/22 07:03 Potassium 3.5 mmol/L (3.6-5.0) L 07/02/22 07:03 Chloride 104.5 mmol/L (98-107) 07/02/22 07:03 Carbon Dioxide 23 mmol/L (22-30) 07/02/22 07:03 Anion Gap 15 mmol/L 07/02/22 07:03 BUN 10 mg/dL (9-20) 07/02/22 07:03 Creatinine 0.6 mg/dL (0.8-1.3) L 07/02/22 07:03 Estimated GFR > 60 ml/min 07/02/22 07:03 BUN/Creatinine Ratio 17 % 07/02/22 07:03 Glucose 89 mg/dL (75-100) 07/02/22 07:03 Lactic Acid 1.40 mmol/L (0.7-2.0) 07/02/22 07:03 Calcium 9.5 mg/dL (8.4-10.2) 07/02/22 07:03 Magnesium 1.80 mg/dL (1.7-2.3) 06/30/22 23:49 Total Bilirubin 0.20 mg/dL (0.1-1.2) 06/30/22 23:49 AST 69 units/L (5-40) H 06/30/22 23:49 ALT 135 units/L (7-56) H 06/30/22 23:49 Alkaline Phosphatase 147 units/L (35-129) H 06/30/22 23:49 Total Creatine Kinase 158 units/L (55-170) 06/30/22 23:49 Troponin T 0.128 ng/mL (0.00-0.029) H* 06/30/22 23:49 Total Protein 7.4 g/dL (6.3-8.2) 06/30/22 23:49 Albumin 3.4 g/dL (3.9-5) L 06/30/22 23:49 Albumin/Globulin Ratio 0.9 % 06/30/22 23:49 Triglycerides 147 mg/dL (2-149) 06/30/22 23:49 Cholesterol 164 mg/dL (50-199) 06/30/22 23:49 LDL Cholesterol Direct 94 mg/dL (50-130) 06/30/22 23:49 HDL Cholesterol 35 mg/dL (40-59) L 06/30/22 23:49 Cholesterol/HDL Ratio 4.68 % 06/30/22 23:49 Procalcitonin 0.33 ng/mL (<0.15) 07/01/22 05:06 Urine Color Yellow (Yellow) 06/30/22 09:45 Urine Turbidity Turbid (Clear) 06/30/22 09:45 Urine pH 9.0 (5.0-7.0) H 06/30/22 09:45 Ur Specific [place] 1.011 (1.003-1.030) 06/30/22 09:45 Urine Protein <15 mg/dl mg/dL (Negative) 06/30/22 09:45 Urine Glucose (UA) Neg mg/dL (Negative) 06/30/22 09:45 Urine Ketones Neg mg/dL (Negative) 06/30/22 09:45 Urine Blood Neg (Negative) 06/30/22 09:45 Urine Nitrite Neg (Negative) 06/30/22 09:45 Urine Bilirubin Neg (Negative) 06/30/22 09:45 Urine Urobilinogen 2.0 mg/dL (<2.0) 06/30/22 09:45 Ur Leukocyte Esterase Neg (Negative) 06/30/22 09:45 Urine WBC (Auto) < 1.0 /HPF (0.0-6.0) 06/30/22 09:45 Urine RBC (Auto) 1.0 /HPF (0.0-6.0) 06/30/22 09:45 U Epithel Cells (Auto) 1.0 /HPF (0-13.0) 06/30/22 09:45 Urine Bacteria (Auto) 2+ /HPF (Negative) 06/30/22 09:45 Amorphous Crystals 1+ 06/30/22 09:45 Urine Mucus Few /HPF 06/30/22 09:45 Urine Sperm Few /HPF (HAND SPRAY OPERATOR) 06/30/22 09:45 Acetaminophen 5.0 ug/mL (10.0-30.0) L 07/01/22 00:00 Phenytoin 16.0 ug/mL (10.0-20.0) 06/30/22 23:49 Valproic Acid 71.4 ug/mL (50-100) 06/30/22 23:49 Coronavirus (PCR) Negative (Negative) 07/01/22 09:32 Hepatitis A IgM Ab Non-reactive (NonReactive) 07/01/22 05:06 Hep Bs Antigen Non-reactive (Negative) 07/01/22 05:06 Hep B Core IgM Ab Non-reactive (NonReactive) 07/01/22 05:06 Hepatitis C Antibody Non-reactive (NonReactive) 07/01/22 05:06 Microbiology: Microbiology 06/30/22 Unknown Urine,Catheterized - Straight Catheter Urine Culture - Preliminary Gram Negative Kwaku 06/30/22 23:38 Peripheral/Venous Blood Culture - Preliminary NO GROWTH AFTER 24 HOURS 06/30/22 23:49 Peripheral/Venous Blood Culture - Preliminary NO GROWTH AFTER 24 HOURS Snow/IV: Voiding Method Condom Catheter Active Medications - Current Medications Current Medications: Generic Name Dose Route Start Last Admin Trade Name Freq PRN Reason Stop Dose Admin Acetaminophen 650 mg 07/01/22 02:23 07/02/22 01:46 Acetaminophen 325 Mg Tab PO 650 mg Q4H PRN Administration Pain MILD(1-3)/Fever >100.5/BOWER Albuterol/Ipratropium 1 ampul 07/02/22 20:00 Ipratropium/Albuterol Sulfate 3 Ml Ampul.Neb IH TIDRT SHILA Apixaban 5 mg 07/02/22 22:00 Apixaban 5 Mg Tab FEEDTUBE Q12HR SHILA Artificial Tears 2 drops 07/01/22 18:08 Hypromellose 0.5% Ophth Soln 15 Ml OU Q4H PRN Dry Eye(s) Aspirin 81 mg 07/03/22 10:00 Aspirin 81 Mg Tab Chew FEEDTUBE QDAY SHILA Diltiazem HCl 120 mg 07/02/22 14:00 07/02/22 13:48 Diltiazem 60 Mg Tab FEEDTUBE Not Given Q8HR SHILA Cefepime HCl 2 gm in 100 mls @ 200 mls/hr 07/01/22 08:00 07/02/22 15:28 Cefepime/Ns 2 Gm/100 Ml IV 200 mls/hr Q8H SHILA Administration Protocol Vancomycin HCl 1 gm in 250 mls @ 166.667 mls/hr 07/01/22 12:00 07/02/22 11:30 Vancomycin/Ns 1 Gm/250 Ml IV 166.667 mls/hr Q8H SHILA Administration Lacosamide 200 mg 07/01/22 22:00 07/02/22 09:02 Lacosamide 100 Mg Tab PO 200 mg Q12HR SHILA Administration Levetiracetam 1,500 mg 07/02/22 22:00 Levetiracetam 500 Mg/5 Ml Oral Liqd FEEDTUBE BID SHILA Magnesium Hydroxide 30 ml 07/01/22 04:39 07/02/22 04:05 Magnesium Hydroxide (Mom) Oral Liqd Udc PO 30 ml Q4H PRN Administration Constipation Metoclopramide HCl 5 mg 07/02/22 11:00 07/02/22 10:30 Metoclopramide 10 Mg/10 Ml Oral Liqd FEEDTUBE 5 mg Q8H SHILA Administration Metoprolol Tartrate 50 mg 07/03/22 10:00 Metoprolol Tartrate 50 Mg Tab FEEDTUBE DAILY SHILA Naloxone HCl 0.1 mg 07/01/22 02:23 Naloxone 0.4 Mg/1 Ml Inj IV Q2MIN PRN Res Rate </= 8 or 02 SAT < 92% Ondansetron HCl 4 mg 07/01/22 02:23 Ondansetron 4 Mg/2 Ml Inj IV Q8H PRN Nausea And Vomiting Phenytoin 100 mg 07/01/22 22:00 07/02/22 15:28 Phenytoin 100 Mg/4 Ml Oral.Liqd FEEDTUBE 100 mg Q8HR SHILA Administration Scopolamine 1 each 07/01/22 20:00 07/01/22 22:39 Scopolamine Transdermal Patch 72 Hr TD 1 each Q3D SHILA Administration Sodium Chloride 10 ml 07/01/22 10:00 07/02/22 09:03 Sodium Chloride 0.9% 10 Ml Flush Syringe IV 10 ml BID SHILA Administration Sodium Chloride 10 ml 07/01/22 04:39 Sodium Chloride 0.9% 10 Ml Flush Syringe IV PRN PRN LINE FLUSH Topiramate 200 mg 07/01/22 22:00 07/02/22 10:03 Topiramate Tab 200 Mg Tab PO 200 mg BID SHILA Administration Valproic Acid 1,000 mg 07/01/22 22:00 07/02/22 15:27 Valproic Acid 250 Mg/5 Ml Oral Liqd PO 1,000 mg Q8HR SHILA Administration Nutrition/Malnutrition Assess - Dietary Evaluation Nutrition/Malnutrition Findings: Nutrition Notes Start: 07/01/22 13:07 Freq: Status: Active Protocol: Document 07/02/22 12:18 CM (Rec: 07/02/22 12:26 CM [id number]) Co-Sign 07/02/22 12:18 WW Nutrition Notes Need for Assessment generated from: paper carrier Initial or Follow up Reassessment Current Diagnosis Sepsis Other Pertinent Diagnosis AMS, H/o anoxic brain injury, PEG dependency, trach dependency Current Diet Jevity 1.2 @ 40mL/hr Labs/Tests 07/02: K 3.5 Pertinent Medications 07/02: Reviewed Height 5 ft 11 in Weight 62.4 kg [place] Body Weight (kg) 78.18 BMI 19.1 Weight change and time frame Bed weight taken today. Will monitor for changes. Weight Status Appropriate Subjective/Other Information RD consult for hx of difficulty chewing. 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 Spoke with RN, , and pt's sister to confirm changing to Osmolite 1.5 at this time. Pt remains on mechanical ventilation with AMS. Abdomen soft, non-tender, BS+ per physical assessment. Burn Absent Trauma Absent GI Symptoms None Difficulty In Swallowing Food Allergy Yes Skin Integrity/Comment WNL per progress notes Current % PO Other Minimum of two criteria No Fluid Accumulation N/A Reduced [employer] Strength N/A (non-severe) Protein-Calorie Malnutrition N\A #2 Nutrition Diagnosis Altered nutrition-related laboratory values Diagnosis Progress(for reassessment Continues documentation) #1 Nutrition Diagnosis Swallowing difficulty Diagnosis Progress(for reassessment Continues documentation) Is patient on ventilator? Yes Is Patient Ambulatory and/or Out of Bed No REE-([facility]-confined to bed) [phone] Calculation Used for Recommendations [facility] Additional Notes Protein: 0.6-0.8g/kg ABW; 37- 50g PRO q day Fluid: 1mL/kcal or per MD. Nutrition Intervention Nutrition Support: Recommend changing TF to Osmolite 1.5 @ 40mL/hr x 24hrs. Flush with 120mL q 4hr or per MD. Kcal 1,440 Protein (gm) 60 Fluid (mL) 732 % RDI: 75%kcal /120% AA Goal #1 Pt to tolerate >75% of estimated energy/protein needs through enteral nutrition. Follow-Up By: 07/04/22 Additional Comments Monitor TF initiation, GI symptoms, nutrition-related labs, and wt status.
[2022-07-02] MEDS: IPRATROPIUM/ALBUTEROL SULFATE 3 ML AMPUL.NEB IH SCH (20:03)
[2022-07-02] MEDS: levETIRAcetam 500 MG/5 ML ORAL LIQD FEEDTUBE SCH (22:09)
[2022-07-02] MEDS: APIXABAN 5 MG TAB FEEDTUBE SCH (22:09)
[2022-07-03] MEDS: METOCLOPRAMIDE 10 MG/10 ML ORAL LIQD FEEDTUBE SCH ×3 (02:41→18:32)
[2022-07-03 05:22] LABS: Hematocrit 30.7 % (35.5-45.6); Mean Corpuscular HGB Conc 33 % (32-34); Mean Corpuscular Volume 91 fl (84-94); Platelet Count 358 K/mm3 (140-440); Red Blood Count 3.38 M/mm3 (3.65-5.03)
[2022-07-03 06:05] LABS: Alanine Aminotransferase 119 units/L (7-56); Albumin 3.2 g/dL (3.9-5); Blood Urea Nitrogen 9 mg/dL (9-20); Calcium 9.5 mg/dL (8.4-10.2); Hemolysis Index 10
[2022-07-03 06:06] LABS: BUN/Creatinine Ratio 15
[2022-07-03 06:15] LABS: Basophils % (Manual) 0 % (0.0-1.8); Platelet Estimate Consistent w Auto; Total Cells Counted 100
[2022-07-03] MEDS: VANCOMYCIN/NS 1 GM/250 ML 1 GM/250 ML BAG IV SCH ×2 (06:31→11:39)
[2022-07-03] MEDS: dilTIAZem 60 MG TAB FEEDTUBE SCH ×4 (06:37→21:37)
[2022-07-03] MEDS: PHENYTOIN 100 MG/4 ML ORAL.LIQD FEEDTUBE SCH ×3 (06:39→21:42)
[2022-07-03] MEDS: VALPROIC ACID 250 MG/5 ML ORAL LIQD PO SCH ×3 (06:39→21:43)
[2022-07-03] MEDS: CEFEPIME/NS 2 GM/100 ML 2 GM/100 ML BAG IV SCH (07:51)
[2022-07-03] MEDS: levETIRAcetam 500 MG/5 ML ORAL LIQD FEEDTUBE SCH ×2 (09:05→21:43)
[2022-07-03] MEDS: ASPIRIN 81 MG TAB CHEW FEEDTUBE SCH (09:05)
[2022-07-03] MEDS: MULTIVITAMIN / MINERAL ORAL LIQUID 15 ML PO SCH (09:05)
[2022-07-03] MEDS: TOPIRAMATE TAB 200 MG TAB PO SCH ×2 (09:05→21:42)
[2022-07-03] MEDS: APIXABAN 5 MG TAB FEEDTUBE SCH ×2 (09:05→21:41)
[2022-07-03] MEDS: METOPROLOL TARTRATE 50 MG TAB FEEDTUBE SCH (09:06)
[2022-07-03] MEDS: LACOSAMIDE 100 MG TAB PO SCH ×2 (09:09→21:41)
[2022-07-03] MEDS: IPRATROPIUM/ALBUTEROL SULFATE 3 ML AMPUL.NEB IH SCH ×3 (09:39→20:53)
--- NOTE | 2022-07-03 13:26 | Progress Note ---
Assessment and Plan Cultures: 06/30/2022 blood culture: No growth 06/30/2022 urine culture: GNR A/P: 31-year-old male with anoxic brain injury, s/p PEG tube, tracheostomy, recently moved to [place] from [place], has a history of prolonged hospitalization while in [place] was admitted due to fever. Nonverbal at baseline: #SIRS versus sepsis: Etiology unclear. ? Tracheitis. Chest x-ray without any obvious pneumonia. UA does not show any significant pyuria. WBC is better. Procalcitonin 0.33. No acute intra-abdominal infectious process noted on CT. No skin issues per RN. #Positive urine culture: Reflects colonization #Anoxic brain injury/encephalopathy #Elevated LFTs Recs: Antibiotics discontinued Tracheostomy care and suctioning as needed Monitor LFTs Gloria Su MD, FACP, [facility] O: [phone] F: [phone] C: [phone] Subjective Date of service: 07/03/22 Interval history: Afebrile. Remains stable. Objective - Exam Narrative Exam: Physical Exam: Constitutional: Unresponsive, nonverbal Head, Ears, Nose: Normocephalic, atraumatic. External ears, nose normal Eyes: Conjunctivae/corneas clear. No icterus. No ptosis. Neck: Trach + Oral: Unable to examine Cardiovascular: S1, S2 + Respiratory: Good air entry, clear to auscultation bilaterally GI: Soft, non-tender; bowel sounds normal. No peritoneal signs. G-tube + Musculoskeletal: No pedal edema, no cyanosis. Skin: No rash or abscess Hem/Lymphatic: No palpable cervical or supraclavicular nodes. No lymphangitis Psych: Unresponsive Neurological: Unresponsive - Constitutional Vitals: Vital Signs Temp Pulse Resp BP Pulse Ox 98.7 F 85 20 117/49 100 07/03/22 11:22 07/03/22 11:22 07/03/22 11:22 07/03/22 11:22 07/03/22 11:22 Temperature -Last 24 Hours Temperature 98.7 F Temperature 96.0 F Temperature 99 F Temperature 99.0 F Temperature 98.6 F - Labs CBC & Chem 7: 07/03/22 03:53 07/03/22 03:53 Labs: Abnormal lab results 07/03/22 07/03/22 07/03/22 Range/Units 03:53 03:53 03:53 RBC 3.38 L (3.65-5.03) M/mm3 Hgb 10.0 L (11.8-15.2) gm/dl Hct 30.7 L (35.5-45.6) % RDW 13.0 L (13.2-15.2) % Monocytes % (Manual) 16.0 H (0.0-7.3) % Monocytes # (Manual) 1.3 H (0.0-0.8) K/mm3 Chloride 108.9 H (98-107) mmol/L Creatinine 0.6 L (0.8-1.3) mg/dL AST 79 H (5-40) units/L ALT 119 H (7-56) units/L Total Protein 6.2 L (6.3-8.2) g/dL Albumin 3.2 L (3.9-5) g/dL Vancomycin Trough 29.8 H (5.0-20.0) ug/mL
[2022-07-03] MEDS ORDERED: VANCOMYCIN/NS 1 GM/250 ML 1 GM/250 ML BAG IV SCH (14:00)
--- NOTE | 2022-07-03 19:48 | Progress Note ---
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 Patient recently moved from [place] to [place]. He was admitted at [facility] sometime in October 2021 and discharged last week and transported to [place] straight from hospital to live with his parents here. Patient was said to have spent about 8 months in the hospital. His hospital course was complicated by sepsis, pneumonia. He has been home from [place] for about a week ago started having fever over the past few days. Most of the history was obtained from family were by the bedside. Patient is said to have been having some nausea and vomiting and abdominal pain. He had a temperature of about 103 F. There has been no diarrhea. No hematuria . Patient's COVID immunization status is unknown. Work-up in the emergency room-labs were significant for leukocytosis of 18.5, elevated liver enzymes with AST of 69 and ALT of 135, troponin 0.128. Chest x- ray significant for mild right basilar consolidation favored to represent atelectasis and questionable trace right basilar pleural effusion. Abdomen/Pelvis CT : 1. No acute abdominopelvic process. 2. Confluent multisegmental right lower lobe atelectasis and left basilar subsegmental atelectasis. Given the history of sepsis, a component of superimposed right lower lobe pneumonia may be present. 3. Trace right greater than left basilar pleural effusions. 4. Abnormal corticomedullary osseous attenuation, most notably involving the proximal femurs, with either tiny lytic lesions or profound osteopenia. The primary concern is for multiple myeloma, therefore serum laboratory correlation is recommended to exclude a monoclonal gammopathy. Patient is admitted for sepsis, started on IV antibiotics after cultures and ID consulted. Assessment: 1. Sepsis with high fever, vomiting and leukocytosis soon after discharge from the hospital after a long stay 2. Possible aspiration/pneumonia, respiratory status stable, trach with T- tube on O2 3. History of anoxic brain injury, chronic vegetative state, nonverbal, unresponsive 4. History of cardiac arrest from illicit drug overdose 5. Elevated liver enzymes 6. History of seizures 7. Trach and PEG tube dependent, on home O2 Plan: 1. Patient admitted and placed on empiric IV antibiotics and IV fluid. 2. Fevers resolved, leukocytosis resolving, blood cultures negative to date. Urine culture growing gram-negative rods. 3. Patient has condom cath with no reported voiding problems. 4. ID consulted and following. DVT prophylaxis: Subcutaneous heparin CODE STATUS: Full code Disposition: Fever resolved, clinically stable, DC pending further improvement, awaiting final urine culture report Discussed with the nursing staff, sister and ID. Sister is requesting changing tracheostomy tube with a newer one that she just received since existing model is no longer being available. Will discuss with pulmonary History Interval history: No fever during the last 24 hours. Leukocytosis resolving on empiric antibiotic therapy. Blood cultures negative to date but urine cultures growing gram- negative rods. Patient has a condom catheter and has no reported difficulty voiding. Tolerating tube feeds. Respiratory status stable. No acute events. Hospitalist Physical - Constitutional Vitals: Temp Pulse Resp BP Pulse Ox 98.7 F 102 H 27 H 117/49 98 07/03/22 11:22 07/03/22 15:03 07/03/22 15:03 07/03/22 13:30 07/03/22 14:57 General appearance: Present: no acute distress, well-nourished, other (Chronic vegetative state, nonverbal, unresponsive) - EENT Eyes: Absent: scleral icterus ENT: clear oral mucosa - Neck Neck: Present: supple. Absent: masses or JVD - Respiratory Respiratory effort: normal Respiratory: bilateral: diminished (Mild wheezes) - Cardiovascular Rhythm: regular - Extremities Extremities: No edema - Abdominal General gastrointestinal: soft, non-tender, non-distended, normal bowel sounds, other (No masses, PEG tube in place) - Integumentary Integumentary: Absent: rash - Neurologic Neurologic: other (Chronic respiratory state from anoxic encephalopathy, nonverbal, unresponsive, posturing with extremities in extension with contractures) HEART Score - HEART Score Troponin: Troponin T 0.128 ng/mL (0.00-0.029) H* 06/30/22 23:49 Results - Labs CBC & Chem 7: 07/03/22 03:53 07/03/22 03:53 Labs: Laboratory Last Values WBC 8.3 K/mm3 (4.5-11.0) 07/03/22 03:53 RBC 3.38 M/mm3 (3.65-5.03) L 07/03/22 03:53 Hgb 10.0 gm/dl (11.8-15.2) L 07/03/22 03:53 Hct 30.7 % (35.5-45.6) L 07/03/22 03:53 MCV 91 fl (84-94) 07/03/22 03:53 MCH 30 pg (28-32) 07/03/22 03:53 MCHC 33 % (32-34) 07/03/22 03:53 RDW 13.0 % (13.2-15.2) L 07/03/22 03:53 Plt Count 358 K/mm3 (140-440) 07/03/22 03:53 Lymph % (Auto) 14.4 % (13.4-35.0) 06/30/22 23:49 [place] % (Auto) Student Finance Specialist 07/03/22 03:53 Eos % (Auto) 0.7 % (0.0-4.3) 06/30/22 23:49 Baso % (Auto) 0.4 % (0.0-1.8) 06/30/22 23:49 Lymph # (Auto) 2.7 K/mm3 (1.2-5.4) 06/30/22 23:49 [place] # (Auto) 2.9 K/mm3 (0.0-0.8) H 06/30/22 23:49 Eos # (Auto) 0.1 K/mm3 (0.0-0.4) 06/30/22 23:49 Baso # (Auto) 0.1 K/mm3 (0.0-0.1) 06/30/22 23:49 Add Manual Diff Complete 07/03/22 03:53 Total Counted 100 07/03/22 03:53 Seg Neutrophils % 68.7 % (40.0-70.0) 06/30/22 23:49 Seg Neuts % (Manual) 67.0 % (40.0-70.0) 07/03/22 03:53 Band Neutrophils % 0 % 07/03/22 03:53 Lymphocytes % (Manual) 14.0 % (13.4-35.0) 07/03/22 03:53 Reactive Lymphs % (Man) 0 % 07/03/22 03:53 Monocytes % (Manual) 16.0 % (0.0-7.3) H 07/03/22 03:53 Eosinophils % (Manual) 3.0 % (0.0-4.3) 07/03/22 03:53 Basophils % (Manual) 0 % (0.0-1.8) 07/03/22 03:53 Metamyelocytes % 0 % 07/03/22 03:53 Myelocytes % 0 % 07/03/22 03:53 Promyelocytes % 0 % 07/03/22 03:53 Blast Cells % 0 % 07/03/22 03:53 Nucleated RBC % Not Reportable 07/03/22 03:53 Seg Neutrophils # 12.7 K/mm3 (1.8-7.7) H 06/30/22 23:49 Seg Neutrophils # Man 5.6 K/mm3 (1.8-7.7) 07/03/22 03:53 Band Neutrophils # 0.0 K/mm3 07/03/22 03:53 Lymphocytes # (Manual) 1.2 K/mm3 (1.2-5.4) 07/03/22 03:53 Abs React Lymphs (Man) 0.0 K/mm3 07/03/22 03:53 Monocytes # (Manual) 1.3 K/mm3 (0.0-0.8) H 07/03/22 03:53 Eosinophils # (Manual) 0.2 K/mm3 (0.0-0.4) 07/03/22 03:53 Basophils # (Manual) 0.0 K/mm3 (0.0-0.1) 07/03/22 03:53 Metamyelocytes # 0.0 K/mm3 07/03/22 03:53 Myelocytes # 0.0 K/mm3 07/03/22 03:53 Promyelocytes # 0.0 K/mm3 07/03/22 03:53 Blast Cells # 0.0 K/mm3 07/03/22 03:53 WBC Morphology Not Reportable 07/03/22 03:53 Hypersegmented Neuts Not Reportable 07/03/22 03:53 Hyposegmented Neuts Not Reportable 07/03/22 03:53 Hypogranular Neuts Not Reportable 07/03/22 03:53 Smudge Cells Not Reportable 07/03/22 03:53 Toxic Granulation Not Reportable 07/03/22 03:53 Toxic Vacuolation Not Reportable 07/03/22 03:53 Dohle Bodies Not Reportable 07/03/22 03:53 Pelger-Huet Anomaly Not Reportable 07/03/22 03:53 Arsh Rods Not Reportable 07/03/22 03:53 Platelet Estimate Consistent w auto 07/03/22 03:53 Clumped Platelets Not Reportable 07/03/22 03:53 Plt Clumps, EDTA Not Reportable 07/03/22 03:53 Large Platelets Not Reportable 07/03/22 03:53 Giant Platelets Not Reportable 07/03/22 03:53 Platelet Satelliting Not Reportable 07/03/22 03:53 Plt Morphology Comment Not Reportable 07/03/22 03:53 RBC Morphology Not Reportable 07/03/22 03:53 Dimorphic RBCs Not Reportable 07/03/22 03:53 Polychromasia Not Reportable 07/03/22 03:53 Hypochromasia Not Reportable 07/03/22 03:53 Poikilocytosis Not Reportable 07/03/22 03:53 Anisocytosis Not Reportable 07/03/22 03:53 Microcytosis Not Reportable 07/03/22 03:53 Macrocytosis Not Reportable 07/03/22 03:53 Spherocytes Not Reportable 07/03/22 03:53 Pappenheimer Bodies Not Reportable 07/03/22 03:53 Sickle Cells Not Reportable 07/03/22 03:53 Target Cells Not Reportable 07/03/22 03:53 Tear Drop Cells Not Reportable 07/03/22 03:53 Ovalocytes Not Reportable 07/03/22 03:53 Helmet Cells Not Reportable 07/03/22 03:53 Monzon-Merna Bodies Not Reportable 07/03/22 03:53 [place] Rings Not Reportable 07/03/22 03:53 Goodman Cells Not Reportable 07/03/22 03:53 Bite Cells Not Reportable 07/03/22 03:53 Crenated Cell Not Reportable 07/03/22 03:53 Elliptocytes Not Reportable 07/03/22 03:53 Acanthocytes (Spur) Not Reportable 07/03/22 03:53 Rouleaux Not Reportable 07/03/22 03:53 Hemoglobin C Crystals Not Reportable 07/03/22 03:53 Schistocytes Not Reportable 07/03/22 03:53 Malaria parasites Not Reportable 07/03/22 03:53 Oz Bodies Not Reportable 07/03/22 03:53 Hem Pathologist Commnt No 07/03/22 03:53 PT 16.3 Sec. (12.2-14.9) H 06/30/22 23:49 INR 1.14 (0.87-1.13) H 06/30/22 23:49 APTT 33.7 Sec. (24.2-36.6) 06/30/22 23:49 D-Dimer 265.15 ng/mlDDU (0-234) H 07/02/22 07:03 Sodium 145 mmol/L (137-145) 07/03/22 03:53 Potassium 4.1 mmol/L (3.6-5.0) 07/03/22 03:53 Chloride 108.9 mmol/L (98-107) H 07/03/22 03:53 Carbon Dioxide 24 mmol/L (22-30) 07/03/22 03:53 Anion Gap 16 mmol/L 07/03/22 03:53 BUN 9 mg/dL (9-20) 07/03/22 03:53 Creatinine 0.6 mg/dL (0.8-1.3) L 07/03/22 03:53 Estimated GFR > 60 ml/min 07/03/22 03:53 BUN/Creatinine Ratio 15 % 07/03/22 03:53 Glucose 90 mg/dL (75-100) 07/03/22 03:53 POC Glucose 93 mg/dL (70-105) 07/03/22 16:34 Lactic Acid 1.40 mmol/L (0.7-2.0) 07/02/22 07:03 Calcium 9.5 mg/dL (8.4-10.2) 07/03/22 03:53 Magnesium 1.80 mg/dL (1.7-2.3) 06/30/22 23:49 Total Bilirubin < 0.20 mg/dL (0.1-1.2) 07/03/22 03:53 AST 79 units/L (5-40) H 07/03/22 03:53 ALT 119 units/L (7-56) H 07/03/22 03:53 Alkaline Phosphatase 127 units/L (35-129) 07/03/22 03:53 Total Creatine Kinase 158 units/L (55-170) 06/30/22 23:49 Troponin T 0.128 ng/mL (0.00-0.029) H* 06/30/22 23:49 Total Protein 6.2 g/dL (6.3-8.2) L 07/03/22 03:53 Albumin 3.2 g/dL (3.9-5) L 07/03/22 03:53 Albumin/Globulin Ratio 1.1 % 07/03/22 03:53 Triglycerides 147 mg/dL (2-149) 06/30/22 23:49 Cholesterol 164 mg/dL (50-199) 06/30/22 23:49 LDL Cholesterol Direct 94 mg/dL (50-130) 06/30/22 23:49 HDL Cholesterol 35 mg/dL (40-59) L 06/30/22 23:49 Cholesterol/HDL Ratio 4.68 % 06/30/22 23:49 Procalcitonin 0.33 ng/mL (<0.15) 07/01/22 05:06 Urine Color Yellow (Yellow) 06/30/22 09:45 Urine Turbidity Turbid (Clear) 06/30/22 09:45 Urine pH 9.0 (5.0-7.0) H 06/30/22 09:45 Ur Specific [place] 1.011 (1.003-1.030) 06/30/22 09:45 Urine Protein <15 mg/dl mg/dL (Negative) 06/30/22 09:45 Urine Glucose (UA) Neg mg/dL (Negative) 06/30/22 09:45 Urine Ketones Neg mg/dL (Negative) 06/30/22 09:45 Urine Blood Neg (Negative) 06/30/22 09:45 Urine Nitrite Neg (Negative) 06/30/22 09:45 Urine Bilirubin Neg (Negative) 06/30/22 09:45 Urine Urobilinogen 2.0 mg/dL (<2.0) 06/30/22 09:45 Ur Leukocyte Esterase Neg (Negative) 06/30/22 09:45 Urine WBC (Auto) < 1.0 /HPF (0.0-6.0) 06/30/22 09:45 Urine RBC (Auto) 1.0 /HPF (0.0-6.0) 06/30/22 09:45 U Epithel Cells (Auto) 1.0 /HPF (0-13.0) 06/30/22 09:45 Urine Bacteria (Auto) 2+ /HPF (Negative) 06/30/22 09:45 Amorphous Crystals 1+ 06/30/22 09:45 Urine Mucus Few /HPF 06/30/22 09:45 Urine Sperm Few /HPF (RN CCU) 06/30/22 09:45 Vancomycin Trough 29.8 ug/mL (5.0-20.0) H 07/03/22 03:53 Acetaminophen 5.0 ug/mL (10.0-30.0) L 07/01/22 00:00 Phenytoin 16.0 ug/mL (10.0-20.0) 06/30/22 23:49 Valproic Acid 71.4 ug/mL (50-100) 06/30/22 23:49 Coronavirus (PCR) Negative (Negative) 07/01/22 09:32 Hepatitis A IgM Ab Non-reactive (NonReactive) 07/01/22 05:06 Hep Bs Antigen Non-reactive (Negative) 07/01/22 05:06 Hep B Core IgM Ab Non-reactive (NonReactive) 07/01/22 05:06 Hepatitis C Antibody Non-reactive (NonReactive) 07/01/22 05:06 Microbiology: Microbiology 06/30/22 23:38 Peripheral/Venous Blood Culture - Preliminary NO GROWTH AFTER 48 HOURS 06/30/22 23:49 Peripheral/Venous Blood Culture - Preliminary NO GROWTH AFTER 48 HOURS Snow/IV: Voiding Method Condom Catheter Active Medications - Current Medications Current Medications: Generic Name Dose Route Start Last Admin Trade Name Freq PRN Reason Stop Dose Admin Acetaminophen 650 mg 07/01/22 02:23 07/02/22 23:10 Acetaminophen 325 Mg Tab PO 650 mg Q4H PRN Administration Pain MILD(1-3)/Fever >100.5/BOWER Albuterol/Ipratropium 1 ampul 07/02/22 20:00 07/03/22 14:56 Ipratropium/Albuterol Sulfate 3 Ml Ampul.Neb IH 1 ampul TIDRT SHILA Administration Apixaban 5 mg 07/02/22 22:00 07/03/22 09:05 Apixaban 5 Mg Tab FEEDTUBE 5 mg Q12HR SHILA Administration Artificial Tears 2 drops 07/01/22 18:08 Hypromellose 0.5% Ophth Soln 15 Ml OU Q4H PRN Dry Eye(s) Aspirin 81 mg 07/03/22 10:00 07/03/22 09:05 Aspirin 81 Mg Tab Chew FEEDTUBE 81 mg QDAY SHILA Administration Diltiazem HCl 120 mg 07/02/22 14:00 07/03/22 13:30 Diltiazem 60 Mg Tab FEEDTUBE Not Given Q8HR SHILA Lacosamide 200 mg 07/01/22 22:00 07/03/22 09:09 Lacosamide 100 Mg Tab PO 200 mg Q12HR SHILA Administration Levetiracetam 1,500 mg 07/02/22 22:00 07/03/22 09:05 Levetiracetam 500 Mg/5 Ml Oral Liqd FEEDTUBE 1,500 mg BID SHILA Administration Magnesium Hydroxide 30 ml 07/01/22 04:39 07/02/22 04:05 Magnesium Hydroxide (Mom) Oral Liqd Udc PO 30 ml Q4H PRN Administration Constipation Metoclopramide HCl 5 mg 07/02/22 11:00 07/03/22 18:32 Metoclopramide 10 Mg/10 Ml Oral Liqd FEEDTUBE 5 mg Q8H SHILA Administration Metoprolol Tartrate 50 mg 07/03/22 10:00 07/03/22 09:06 Metoprolol Tartrate 50 Mg Tab FEEDTUBE 50 mg DAILY SHILA Administration Naloxone HCl 0.1 mg 07/01/22 02:23 Naloxone 0.4 Mg/1 Ml Inj IV Q2MIN PRN Res Rate </= 8 or 02 SAT < 92% Ondansetron HCl 4 mg 07/01/22 02:23 Ondansetron 4 Mg/2 Ml Inj IV Q8H PRN Nausea And Vomiting Phenytoin 100 mg 07/01/22 22:00 07/03/22 13:29 Phenytoin 100 Mg/4 Ml Oral.Liqd FEEDTUBE 100 mg Q8HR SHILA Administration Scopolamine 1 each 07/01/22 20:00 07/01/22 22:39 Scopolamine Transdermal Patch 72 Hr TD 1 each Q3D SHILA Administration Sodium Chloride 10 ml 07/01/22 10:00 07/03/22 09:06 Sodium Chloride 0.9% 10 Ml Flush Syringe IV 10 ml BID SHILA Administration Sodium Chloride 10 ml 07/01/22 04:39 Sodium Chloride 0.9% 10 Ml Flush Syringe IV PRN PRN LINE FLUSH Topiramate 200 mg 07/01/22 22:00 07/03/22 09:05 Topiramate Tab 200 Mg Tab PO 200 mg BID SHILA Administration Valproic Acid 1,000 mg 07/01/22 22:00 07/03/22 13:29 Valproic Acid 250 Mg/5 Ml Oral Liqd PO 1,000 mg Q8HR SHILA Administration Nutrition/Malnutrition Assess - Dietary Evaluation Nutrition/Malnutrition Findings: Nutrition Notes Start: 07/01/22 13:07 Freq: Status: Active Protocol: Document 07/02/22 12:18 CM (Rec: 07/02/22 12:26 CM [id number]) Co-Sign 07/02/22 12:18 WW Nutrition Notes Need for Assessment generated from: bell spinner Initial or Follow up Reassessment Current Diagnosis Sepsis Other Pertinent Diagnosis AMS, H/o anoxic brain injury, PEG dependency, trach dependency Current Diet Jevity 1.2 @ 40mL/hr Labs/Tests 07/02: K 3.5 Pertinent Medications 07/02: Reviewed Height 5 ft 11 in Weight 62.4 kg [place] Body Weight (kg) 78.18 BMI 19.1 Weight change and time frame Bed weight taken today. Will monitor for changes. Weight Status Appropriate Subjective/Other Information RD consult for hx of difficulty chewing. Pt currently receiving Jevity 1.2 @ 40mL/hr - formula pt used WINDOW TRIMMER. Spoke with RN, , and pt's sister to confirm changing to Osmolite 1.5 at this time. Pt remains on mechanical ventilation with AMS. Abdomen soft, non-tender, BS+ per physical assessment. Burn Absent Trauma Absent GI Symptoms None Difficulty In Swallowing Food Allergy Yes Skin Integrity/Comment WNL per progress notes Current % PO Other Minimum of two criteria No Fluid Accumulation N/A Reduced Surgical First Assistant Strength N/A (non-severe) Protein-Calorie Malnutrition N\A #2 Nutrition Diagnosis Altered nutrition-related laboratory values Diagnosis Progress(for reassessment Continues documentation) #1 Nutrition Diagnosis Swallowing difficulty Diagnosis Progress(for reassessment Continues documentation) Is patient on ventilator? Yes Is Patient Ambulatory and/or Out of Bed No REE-(Mckinley-. Lana-confined to bed) [phone] Calculation Used for Recommendations [facility] Additional Notes Protein: 0.6-0.8g/kg ABW; 37- 50g PRO q day Fluid: 1mL/kcal or per MD. Nutrition Intervention Nutrition Support: Recommend changing TF to Osmolite 1.5 @ 40mL/hr x 24hrs. Flush with 120mL q 4hr or per MD. Kcal 1,440 Protein (gm) 60 Fluid (mL) 732 % RDI: 75%kcal /120% AA Goal #1 Pt to tolerate >75% of estimated energy/protein needs through enteral nutrition. Follow-Up By: 07/04/22 Additional Comments Monitor TF initiation, GI symptoms, nutrition-related labs, and wt status.
[2022-07-04] MEDS: METOCLOPRAMIDE 10 MG/10 ML ORAL LIQD FEEDTUBE SCH ×3 (02:28→22:02)
[2022-07-04] MEDS: dilTIAZem 60 MG TAB FEEDTUBE SCH ×2 (05:37→13:35)
[2022-07-04] MEDS: PHENYTOIN 100 MG/4 ML ORAL.LIQD FEEDTUBE SCH ×3 (05:38→22:02)
[2022-07-04] MEDS: VALPROIC ACID 250 MG/5 ML ORAL LIQD PO SCH ×3 (05:38→22:02)
[2022-07-04 06:46] LABS: Basophils # (Auto) 0.1 K/mm3 (0.0-0.1); Basophils % (Auto) 0.7 % (0.0-1.8); Eosinophils # (Auto) 0.4 K/mm3 (0.0-0.4); Eosinophils % (Auto) 4.5 % (0.0-4.3); Hematocrit 28.8 % (35.5-45.6); Hemoglobin 9.3 gm/dl (11.8-15.2); Lymphocytes # (Auto) 2.2 K/mm3 (1.2-5.4); Lymphocytes % (Auto) 23.7 % (13.4-35.0); Mean Corpuscular HGB Conc 32 % (32-34); Mean Corpuscular Volume 91 fl (84-94); Monocytes # (Auto) 1.3 K/mm3 (0.0-0.8); Monocytes % (Auto) 13.3 % (0.0-7.3); Platelet Count 357 K/mm3 (140-440); Red Blood Count 3.18 M/mm3 (3.65-5.03); Red Cell Distribution Width 12.9 % (13.2-15.2)
[2022-07-04 07:04] LABS: Alanine Aminotransferase 170 units/L (7-56); Albumin 2.9 g/dL (3.9-5); Blood Urea Nitrogen 9 mg/dL (9-20); Calcium 9.5 mg/dL (8.4-10.2); Hemolysis Index 3
[2022-07-04 07:24] LABS: BUN/Creatinine Ratio 18
[2022-07-04] MEDS: IPRATROPIUM/ALBUTEROL SULFATE 3 ML AMPUL.NEB IH SCH ×3 (07:59→19:37)
[2022-07-04] MEDS: ASPIRIN 81 MG TAB CHEW FEEDTUBE SCH ×2 (08:15→10:00)
[2022-07-04] MEDS: MULTIVITAMIN / MINERAL ORAL LIQUID 15 ML PO SCH ×2 (08:15→10:00)
[2022-07-04] MEDS: TOPIRAMATE TAB 200 MG TAB PO SCH ×3 (08:15→22:03)
[2022-07-04] MEDS: levETIRAcetam 500 MG/5 ML ORAL LIQD FEEDTUBE SCH ×3 (08:21→22:03)
[2022-07-04] MEDS: APIXABAN 5 MG TAB FEEDTUBE SCH ×3 (08:22→22:03)
[2022-07-04] MEDS: METOPROLOL TARTRATE 50 MG TAB FEEDTUBE SCH ×2 (08:24→10:00)
[2022-07-04] MEDS: LACOSAMIDE 100 MG TAB PO SCH ×3 (08:24→22:03)
[2022-07-04] MEDS: SCOPOLAMINE TRANSDERMAL PATCH 72 HR TD SCH ×2 (08:26→10:00)
--- NOTE | 2022-07-04 09:27 | Progress Note ---
Assessment and Plan Cultures: 06/30/2022 blood culture: No growth 06/30/2022 urine culture: GNR A/P: 31-year-old male with anoxic brain injury, s/p PEG tube, tracheostomy, recently moved to [place] from [place], has a history of prolonged hospitalization while in [place] was admitted due to fever. Nonverbal at baseline: #SIRS versus sepsis: Etiology unclear. ? Tracheitis. Chest x-ray without any obvious pneumonia. UA does not show any significant pyuria. WBC is better. Procalcitonin 0.33. No acute intra-abdominal infectious process noted on CT. No skin issues per RN. #Positive urine culture: Reflects colonization #Anoxic brain injury/encephalopathy #Elevated LFTs Recs: -LFTs rising, persistently elevated, RUQ US ordered. Continue off antibiotics. -Tracheostomy care and suctioning as needed Gloria Su MD, FACP, [facility] O: [phone] F: [phone] C: [phone] Subjective Date of service: 07/04/22 Interval history: Afebrile. Remains stable. Non verbal. Objective - Exam Narrative Exam: Physical Exam: Constitutional: Unresponsive, nonverbal Head, Ears, Nose: Normocephalic, atraumatic. External ears, nose normal Eyes: Conjunctivae/corneas clear. No icterus. No ptosis. Neck: Trach + Oral: Unable to examine Cardiovascular: S1, S2 + Respiratory: Good air entry, clear to auscultation bilaterally GI: Soft, non-tender; bowel sounds normal. No peritoneal signs. G-tube + Musculoskeletal: No pedal edema, no cyanosis. Skin: No rash or abscess Hem/Lymphatic: No palpable cervical or supraclavicular nodes. No lymphangitis Psych: Unresponsive Neurological: Unresponsive - Constitutional Vitals: Vital Signs Temp Pulse Resp BP Pulse Ox 98.6 F 99 H 20 127/60 100 07/04/22 05:25 07/04/22 07:59 07/04/22 07:59 07/04/22 05:25 07/04/22 07:59 Temperature -Last 24 Hours Temperature 98.6 F Temperature 99.1 F Temperature 97.9 F Temperature 98.0 F Temperature 98.7 F - Labs CBC & Chem 7: 07/04/22 06:14 07/04/22 06:14 Labs: Abnormal lab results 07/03/22 07/04/22 07/04/22 Range/Units 23:46 06:14 06:14 RBC 3.18 L (3.65-5.03) M/mm3 Hgb 9.3 L (11.8-15.2) gm/dl Hct 28.8 L (35.5-45.6) % RDW 12.9 L (13.2-15.2) % [place] % (Auto) 13.3 H (0.0-7.3) % Eos % (Auto) 4.5 H (0.0-4.3) % [place] # (Auto) 1.3 H (0.0-0.8) K/mm3 Creatinine 0.5 L (0.8-1.3) mg/dL Glucose 133 H (75-100) mg/dL POC Glucose 128 H (70-105) mg/dL AST 114 H (5-40) units/L ALT 170 H (7-56) units/L Total Protein 5.9 L (6.3-8.2) g/dL Albumin 2.9 L (3.9-5) g/dL
--- NOTE | 2022-07-04 11:27 | Consultation ---
History of Present Illness Consult date: 07/04/22 Reason for Consult: Seizure History of present illness: 20-year-old male with history of anoxic brain injury who is PEG tube dependent and trach dependent presenting in the emergency room today accompanied by family with a complaint of fever. Patient recently moved from [place] to [place]. He was admitted at [facility] sometime in October 2021. Patient was said to have spent about 8 months in the hospital. His hospital course was complicated by sepsis, pneumonia. He has been home from [place] for about a week ago started having fever over the past few days. Most of the history was obtained from family were by the bedside. Patient is said to have been having some nausea and vomiting and abdominal pain. He had a temperature of about 103 F. There has been no diarrhea. No hematuria or dysuria. Patient's COVID immunization status is unknown. History Reviewed - no Seizures reported . Past History Past Medical History: other (H/O Drug Overdose) Past Surgical History: Other (Peg tube placement,Trach placement) Social history: no significant social history Family history: no significant family history Medications and Allergies Allergies Allergy/AdvReac Type Severity Reaction Status Date / Time shellfish derived Allergy Hives and Verified 07/01/22 11:30 shortness of breath Home Medications Medication Instructions Recorded Confirmed Last Taken Type Acetaminophen [Children's Pain 640 mg PO Q4H PRN 07/01/22 07/01/22 06/30/22 History Relief] Apixaban [Eliquis] 5 mg PO BID 07/01/22 07/01/22 06/30/22 History Aspirin EC [Halfprin EC] 81 mg PO QDAY 07/01/22 07/01/22 06/30/22 History Lacosamide [Vimpat] 200 mg PO BID 07/01/22 07/01/22 06/30/22 History Metoclopramide HCl [Reglan TAB] 5 mg PO Q8H 07/01/22 07/01/22 06/30/22 History Metoprolol Xl [Metoprolol 100 mg PO QDAY 07/01/22 07/01/22 06/30/22 History SUCCINATE ER TAB] Multivit-Minerals/Ferrous Gluc 9 mg PO QDAY 07/01/22 07/01/22 06/30/22 History [Centrum Multivit-Mineral Liq] Omeprazole 40 mg PO BID 07/01/22 07/01/22 06/30/22 History Phenytoin [Dilantin] 100 mg PO Q8H 07/01/22 07/01/22 06/30/22 History Topiramate [Topamax] 200 mg PO BID 07/01/22 07/01/22 06/30/22 History VALPROIC ACID Liq [DepaKENE Liq] 1,000 mg PO Q8H 07/01/22 07/01/22 06/30/22 History cephALEXin [Keflex] 500 mg PO BID 07/01/22 07/01/22 06/30/22 History dilTIAZem HCL [Diltiazem HCl] 120 mg PO Q6H 07/01/22 07/01/22 06/30/22 History levETIRAcetam [Keppra TAB] 1,500 mg PO BID 07/01/22 07/01/22 06/30/22 History Active Meds: Active Medications Acetaminophen (Acetaminophen 325 Mg Tab) 650 mg PO Q4H PRN PRN Reason: Pain MILD(1-3)/Fever >100.5/BOWER Last Admin: 07/02/22 23:10 Dose: 650 mg Albuterol/Ipratropium (Ipratropium/Albuterol Sulfate 3 Ml Ampul.Neb) 1 ampul IH TIDRT [facility] Last Admin: 07/04/22 07:59 Dose: 1 ampul Apixaban (Apixaban 5 Mg Tab) 5 mg FEEDTUBE Q12HR [facility] Last Admin: 07/04/22 08:22 Dose: 5 mg Artificial Tears (Hypromellose 0.5% Ophth Soln 15 Ml) 2 drops OU Q4H PRN PRN Reason: Dry Eye(s) Aspirin (Aspirin 81 Mg Tab Chew) 81 mg FEEDTUBE QDAY [facility] Last Admin: 07/04/22 08:15 Dose: 81 mg Diltiazem HCl (Diltiazem 60 Mg Tab) 120 mg FEEDTUBE Q8HR [facility] Last Admin: 07/04/22 05:37 Dose: 120 mg Lacosamide (Lacosamide 100 Mg Tab) 200 mg PO Q12HR [facility] Last Admin: 07/04/22 08:24 Dose: 200 mg Levetiracetam (Levetiracetam 500 Mg/5 Ml Oral Liqd) 1,500 mg FEEDTUBE BID [facility] Last Admin: 07/04/22 08:21 Dose: 1,500 mg Magnesium Hydroxide (Magnesium Hydroxide (Mom) Oral Liqd Udc) 30 ml PO Q4H PRN PRN Reason: Constipation Last Admin: 07/02/22 04:05 Dose: 30 ml Metoclopramide HCl (Metoclopramide 10 Mg/10 Ml Oral Liqd) 5 mg FEEDTUBE Q8H [facility] Last Admin: 07/04/22 02:28 Dose: 5 mg Metoprolol Tartrate (Metoprolol Tartrate 50 Mg Tab) 50 mg FEEDTUBE DAILY [facility] Last Admin: 07/04/22 08:24 Dose: 50 mg Naloxone HCl (Naloxone 0.4 Mg/1 Ml Inj) 0.1 mg IV Q2MIN PRN PRN Reason: Res Rate </= 8 or 02 SAT < 92% Ondansetron HCl (Ondansetron 4 Mg/2 Ml Inj) 4 mg IV Q8H PRN PRN Reason: Nausea And Vomiting Phenytoin (Phenytoin 100 Mg/4 Ml Oral.Liqd) 100 mg FEEDTUBE Q8HR [facility] Last Admin: 07/04/22 05:38 Dose: 100 mg Scopolamine (Scopolamine Transdermal Patch 72 Hr) 1 each TD Q3D [facility] Last Admin: 07/04/22 08:26 Dose: 1 each Sodium Chloride (Sodium Chloride 0.9% 10 Ml Flush Syringe) 10 ml IV BID [facility] Last Admin: 07/03/22 21:44 Dose: 10 ml Sodium Chloride (Sodium Chloride 0.9% 10 Ml Flush Syringe) 10 ml IV PRN PRN PRN Reason: LINE FLUSH Topiramate (Topiramate Tab 200 Mg Tab) 200 mg PO BID [facility] Last Admin: 07/04/22 08:15 Dose: 200 mg Valproic Acid (Valproic Acid 250 Mg/5 Ml Oral Liqd) 1,000 mg PO Q8HR [facility] Last Admin: 07/04/22 05:38 Dose: 1,000 mg Physical Examination - Vital Signs Vital Signs: Vital Signs Pulse Ox 96 06/30/22 21:15 - Physical Exam Narrative exam: 1. Non Verbal Patient - does not move upper and lower extremity Spontaneoulsy .There is contracture in the upper and lower extremity. Results - Laboratory Findings CBC and BMP: 07/04/22 06:14 07/04/22 06:14 Abnormal Lab Findings: Abnormal Labs 06/30/22 06/30/22 06/30/22 09:45 23:49 23:49 WBC 18.5 H RBC Hgb 11.0 L Hct 33.5 L RDW 13.0 L Plt Count 471 H Davidson % (Auto) 15.8 H Eos % (Auto) Davidson # (Auto) 2.9 H Monocytes % (Manual) Seg Neutrophils # 12.7 H Monocytes # (Manual) PT 16.3 H INR 1.14 H D-Dimer Potassium Chloride Carbon Dioxide Creatinine Glucose POC Glucose AST ALT Alkaline Phosphatase Troponin T Total Protein Albumin HDL Cholesterol Urine pH 9.0 H Vancomycin Trough Acetaminophen 06/30/22 07/01/22 07/02/22 23:49 00:00 07:03 WBC RBC Hgb Hct RDW Plt Count Davidson % (Auto) Eos % (Auto) Davidson # (Auto) Monocytes % (Manual) Seg Neutrophils # Monocytes # (Manual) PT INR D-Dimer 265.15 H Potassium Chloride Carbon Dioxide 19 L Creatinine 0.6 L Glucose 123 H POC Glucose AST 69 H ALT 135 H Alkaline Phosphatase 147 H Troponin T 0.128 H* Total Protein Albumin 3.4 L HDL Cholesterol 35 L Urine pH Vancomycin Trough Acetaminophen 5.0 L 07/02/22 07/02/22 07/03/22 07:03 07:03 03:53 WBC RBC 3.33 L Hgb 9.9 L Hct 30.4 L RDW 12.9 L Plt Count Davidson % (Auto) Eos % (Auto) Davidson # (Auto) Monocytes % (Manual) 21.0 H Seg Neutrophils # Monocytes # (Manual) 2.0 H PT INR D-Dimer Potassium 3.5 L Chloride 108.9 H Carbon Dioxide Creatinine 0.6 L 0.6 L Glucose POC Glucose AST 79 H ALT 119 H Alkaline Phosphatase Troponin T Total Protein 6.2 L Albumin 3.2 L HDL Cholesterol Urine pH Vancomycin Trough Acetaminophen 07/03/22 07/03/22 07/03/22 03:53 03:53 23:46 WBC RBC 3.38 L Hgb 10.0 L Hct 30.7 L RDW 13.0 L Plt Count Davidson % (Auto) Eos % (Auto) Davidson # (Auto) Monocytes % (Manual) 16.0 H Seg Neutrophils # Monocytes # (Manual) 1.3 H PT INR D-Dimer Potassium Chloride Carbon Dioxide Creatinine Glucose POC Glucose 128 H AST ALT Alkaline Phosphatase Troponin T Total Protein Albumin HDL Cholesterol Urine pH Vancomycin Trough 29.8 H Acetaminophen 07/04/22 07/04/22 06:14 06:14 WBC RBC 3.18 L Hgb 9.3 L Hct 28.8 L RDW 12.9 L Plt Count Davidson % (Auto) 13.3 H Eos % (Auto) 4.5 H Davidson # (Auto) 1.3 H Monocytes % (Manual) Seg Neutrophils # Monocytes # (Manual) PT INR D-Dimer Potassium Chloride Carbon Dioxide Creatinine 0.5 L Glucose 133 H POC Glucose AST 114 H ALT 170 H Alkaline Phosphatase Troponin T Total Protein 5.9 L Albumin 2.9 L HDL Cholesterol Urine pH Vancomycin Trough Acetaminophen Assessment and Plan 1. Seizure ( Secondary to Anoxic Brain Injury -stable ) 2. Continue Vimpat 100 mg 1 tab BID 3. No changes in medications Call Back with Questions Dr. Arboleda
--- NOTE | 2022-07-04 11:47 | Progress Note ---
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 Patient recently moved from [place] to [place]. He was admitted at [facility] and [facility] sometime in October 2021 and discharged last week and transported to [place] straight from hospital to live with his parents here. Patient was said to have spent about 8 months in the hospital. His hospital course was complicated by sepsis, pneumonia. He has been home from [place] for about a week ago started having fever over the past few days. Most of the history was obtained from family were by the bedside. Patient is said to have been having some nausea and vomiting and abdominal pain. He had a temperature of about 103 F. There has been no diarrhea. No hematuria . Patient's COVID immunization status is unknown. Work-up in the emergency room-labs were significant for leukocytosis of 18.5, elevated liver enzymes with AST of 69 and ALT of 135, troponin 0.128. Chest x- ray significant for mild right basilar consolidation favored to represent atelectasis and questionable trace right basilar pleural effusion. Abdomen/Pelvis CT : 1. No acute abdominopelvic process. 2. Confluent multisegmental right lower lobe atelectasis and left basilar subsegmental atelectasis. Given the history of sepsis, a component of superimposed right lower lobe pneumonia may be present. 3. Trace right greater than left basilar pleural effusions. 4. Abnormal corticomedullary osseous attenuation, most notably involving the proximal femurs, with either tiny lytic lesions or profound osteopenia. The primary concern is for multiple myeloma, therefore serum laboratory correlation is recommended to exclude a monoclonal gammopathy. Patient is admitted for sepsis, started on IV antibiotics after cultures and ID consulted. Assessment: 1. Sepsis with high fever, vomiting and leukocytosis soon after discharge from the hospital after a long stay 2. Possible aspiration/pneumonia, respiratory status stable, trach with T- tube on O2 3. History of anoxic brain injury, chronic vegetative state, nonverbal, unresponsive 4. History of cardiac arrest from illicit drug overdose 5. Elevated liver enzymes 6. History of seizures 7. Trach and PEG tube dependent, on home O2 Plan: 1. Patient admitted and placed on empiric IV antibiotics and IV fluid. 2. Fevers resolved, leukocytosis resolving, blood cultures negative to date. Urine culture growing gram-negative rods. 3. Patient has condom cath with no reported voiding problems. 4. ID consulted; appreciate recs. No antibiotics needed at this time. 5. Right upper quadrant ultrasound ordered by infectious disease given patient's increasing transaminases. 6. Neurology consulted for medical management of patient medication; no changes in current medical plan. #Advanced care planning -Disease education conducted, care plan discussed, diagnoses discussed, prognosis discussed, and patient acknowledges understanding with care plan -Time: +30 min Disposition Plan: Continue medical management Total Time Spent with Patient (Minutes): 30 minutes History Interval history: No acute events overnight. Hospitalist Physical - Constitutional Vitals: Temp Pulse Resp BP Pulse Ox 98.6 F 99 H 20 127/60 100 07/04/22 05:25 07/04/22 07:59 07/04/22 07:59 07/04/22 05:25 07/04/22 07:59 General appearance: Present: no acute distress, well-nourished, other (Chronic vegetative state, nonverbal, unresponsive) - EENT Eyes: Present: PERRL, EOM intact ENT: hearing intact, clear oral mucosa - Neck Neck: Present: supple, normal ROM, other (Tracheostomy in place) - Respiratory Respiratory effort: normal Respiratory: bilateral: rhonchi - Cardiovascular Rhythm: regular Heart Sounds: Present: S1 & S2 - Extremities Extremities: no ischemia, pulses intact, pulses symmetrical, No edema, normal temperature, normal color Peripheral Pulses: within normal limits - Abdominal General gastrointestinal: soft, non-tender, non-distended, normal bowel sounds, other (PEG tube in place) - Integumentary Integumentary: Present: clear, warm, dry - Psychiatric Psychiatric: other (Unable to assess given anoxic brain injury) - Neurologic Neurologic: other (Unable to assess given anoxic brain injury) - Allied Health Allied health notes reviewed: nursing HEART Score - HEART Score Troponin: Troponin T 0.128 ng/mL (0.00-0.029) H* 06/30/22 23:49 Results - Labs CBC & Chem 7: 07/04/22 06:14 07/04/22 06:14 Labs: Laboratory Last Values WBC 9.5 K/mm3 (4.5-11.0) 07/04/22 06:14 RBC 3.18 M/mm3 (3.65-5.03) L 07/04/22 06:14 Hgb 9.3 gm/dl (11.8-15.2) L 07/04/22 06:14 Hct 28.8 % (35.5-45.6) L 07/04/22 06:14 MCV 91 fl (84-94) 07/04/22 06:14 MCH 29 pg (28-32) 07/04/22 06:14 MCHC 32 % (32-34) 07/04/22 06:14 RDW 12.9 % (13.2-15.2) L 07/04/22 06:14 Plt Count 357 K/mm3 (140-440) 07/04/22 06:14 Lymph % (Auto) 23.7 % (13.4-35.0) 07/04/22 06:14 [place] % (Auto) 13.3 % (0.0-7.3) H 07/04/22 06:14 Eos % (Auto) 4.5 % (0.0-4.3) H 07/04/22 06:14 Baso % (Auto) 0.7 % (0.0-1.8) 07/04/22 06:14 Lymph # (Auto) 2.2 K/mm3 (1.2-5.4) 07/04/22 06:14 [place] # (Auto) 1.3 K/mm3 (0.0-0.8) H 07/04/22 06:14 Eos # (Auto) 0.4 K/mm3 (0.0-0.4) 07/04/22 06:14 Baso # (Auto) 0.1 K/mm3 (0.0-0.1) 07/04/22 06:14 Add Manual Diff Complete 07/03/22 03:53 Total Counted 100 07/03/22 03:53 Seg Neutrophils % 57.8 % (40.0-70.0) 07/04/22 06:14 Seg Neuts % (Manual) 67.0 % (40.0-70.0) 07/03/22 03:53 Band Neutrophils % 0 % 07/03/22 03:53 Lymphocytes % (Manual) 14.0 % (13.4-35.0) 07/03/22 03:53 Reactive Lymphs % (Man) 0 % 07/03/22 03:53 Monocytes % (Manual) 16.0 % (0.0-7.3) H 07/03/22 03:53 Eosinophils % (Manual) 3.0 % (0.0-4.3) 07/03/22 03:53 Basophils % (Manual) 0 % (0.0-1.8) 07/03/22 03:53 Metamyelocytes % 0 % 07/03/22 03:53 Myelocytes % 0 % 07/03/22 03:53 Promyelocytes % 0 % 07/03/22 03:53 Blast Cells % 0 % 07/03/22 03:53 Nucleated RBC % Not Reportable 07/03/22 03:53 Seg Neutrophils # 5.5 K/mm3 (1.8-7.7) 07/04/22 06:14 Seg Neutrophils # Man 5.6 K/mm3 (1.8-7.7) 07/03/22 03:53 Band Neutrophils # 0.0 K/mm3 07/03/22 03:53 Lymphocytes # (Manual) 1.2 K/mm3 (1.2-5.4) 07/03/22 03:53 Abs React Lymphs (Man) 0.0 K/mm3 07/03/22 03:53 Monocytes # (Manual) 1.3 K/mm3 (0.0-0.8) H 07/03/22 03:53 Eosinophils # (Manual) 0.2 K/mm3 (0.0-0.4) 07/03/22 03:53 Basophils # (Manual) 0.0 K/mm3 (0.0-0.1) 07/03/22 03:53 Metamyelocytes # 0.0 K/mm3 07/03/22 03:53 Myelocytes # 0.0 K/mm3 07/03/22 03:53 Promyelocytes # 0.0 K/mm3 07/03/22 03:53 Blast Cells # 0.0 K/mm3 07/03/22 03:53 WBC Morphology Not Reportable 07/03/22 03:53 Hypersegmented Neuts Not Reportable 07/03/22 03:53 Hyposegmented Neuts Not Reportable 07/03/22 03:53 Hypogranular Neuts Not Reportable 07/03/22 03:53 Smudge Cells Not Reportable 07/03/22 03:53 Toxic Granulation Not Reportable 07/03/22 03:53 Toxic Vacuolation Not Reportable 07/03/22 03:53 Dohle Bodies Not Reportable 07/03/22 03:53 Pelger-Huet Anomaly Not Reportable 07/03/22 03:53 Arsh Rods Not Reportable 07/03/22 03:53 Platelet Estimate Consistent w auto 07/03/22 03:53 Clumped Platelets Not Reportable 07/03/22 03:53 Plt Clumps, EDTA Not Reportable 07/03/22 03:53 Large Platelets Not Reportable 07/03/22 03:53 Giant Platelets Not Reportable 07/03/22 03:53 Platelet Satelliting Not Reportable 07/03/22 03:53 Plt Morphology Comment Not Reportable 07/03/22 03:53 RBC Morphology Not Reportable 07/03/22 03:53 Dimorphic RBCs Not Reportable 07/03/22 03:53 Polychromasia Not Reportable 07/03/22 03:53 Hypochromasia Not Reportable 07/03/22 03:53 Poikilocytosis Not Reportable 07/03/22 03:53 Anisocytosis Not Reportable 07/03/22 03:53 Microcytosis Not Reportable 07/03/22 03:53 Macrocytosis Not Reportable 07/03/22 03:53 Spherocytes Not Reportable 07/03/22 03:53 Pappenheimer Bodies Not Reportable 07/03/22 03:53 Sickle Cells Not Reportable 07/03/22 03:53 Target Cells Not Reportable 07/03/22 03:53 Tear Drop Cells Not Reportable 07/03/22 03:53 Ovalocytes Not Reportable 07/03/22 03:53 Helmet Cells Not Reportable 07/03/22 03:53 [place] Bodies Not Reportable 07/03/22 03:53 [employer] Rings Not Reportable 07/03/22 03:53 [place] Cells Not Reportable 07/03/22 03:53 Bite Cells Not Reportable 07/03/22 03:53 Crenated Cell Not Reportable 07/03/22 03:53 Elliptocytes Not Reportable 07/03/22 03:53 Acanthocytes (Spur) Not Reportable 07/03/22 03:53 Rouleaux Not Reportable 07/03/22 03:53 Hemoglobin C Crystals Not Reportable 07/03/22 03:53 Schistocytes Not Reportable 07/03/22 03:53 Malaria parasites Not Reportable 07/03/22 03:53 Oz Bodies Not Reportable 07/03/22 03:53 Hem Pathologist Commnt No 07/03/22 03:53 PT 16.3 Sec. (12.2-14.9) H 06/30/22 23:49 INR 1.14 (0.87-1.13) H 06/30/22 23:49 APTT 33.7 Sec. (24.2-36.6) 06/30/22 23:49 D-Dimer 265.15 ng/mlDDU (0-234) H 07/02/22 07:03 Sodium 143 mmol/L (137-145) 07/04/22 06:14 Potassium 3.8 mmol/L (3.6-5.0) 07/04/22 06:14 Chloride 107.0 mmol/L (98-107) 07/04/22 06:14 Carbon Dioxide 25 mmol/L (22-30) 07/04/22 06:14 Anion Gap 15 mmol/L 07/04/22 06:14 BUN 9 mg/dL (9-20) 07/04/22 06:14 Creatinine 0.5 mg/dL (0.8-1.3) L 07/04/22 06:14 Estimated GFR > 60 ml/min 07/04/22 06:14 BUN/Creatinine Ratio 18 % 07/04/22 06:14 Glucose 133 mg/dL (75-100) H 07/04/22 06:14 POC Glucose 100 mg/dL (70-105) 07/04/22 05:47 Lactic Acid 1.40 mmol/L (0.7-2.0) 07/02/22 07:03 Calcium 9.5 mg/dL (8.4-10.2) 07/04/22 06:14 Magnesium 1.80 mg/dL (1.7-2.3) 06/30/22 23:49 Total Bilirubin < 0.20 mg/dL (0.1-1.2) 07/04/22 06:14 AST 114 units/L (5-40) H 07/04/22 06:14 ALT 170 units/L (7-56) H 07/04/22 06:14 Alkaline Phosphatase 120 units/L (35-129) 07/04/22 06:14 Total Creatine Kinase 158 units/L (55-170) 06/30/22 23:49 Troponin T 0.128 ng/mL (0.00-0.029) H* 06/30/22 23:49 Total Protein 5.9 g/dL (6.3-8.2) L 07/04/22 06:14 Albumin 2.9 g/dL (3.9-5) L 07/04/22 06:14 Albumin/Globulin Ratio 1.0 % 07/04/22 06:14 Triglycerides 147 mg/dL (2-149) 06/30/22 23:49 Cholesterol 164 mg/dL (50-199) 06/30/22 23:49 LDL Cholesterol Direct 94 mg/dL (50-130) 06/30/22 23:49 HDL Cholesterol 35 mg/dL (40-59) L 06/30/22 23:49 Cholesterol/HDL Ratio 4.68 % 06/30/22 23:49 Procalcitonin 0.33 ng/mL (<0.15) 07/01/22 05:06 Urine Color Yellow (Yellow) 06/30/22 09:45 Urine Turbidity Turbid (Clear) 06/30/22 09:45 Urine pH 9.0 (5.0-7.0) H 06/30/22 09:45 Ur Specific [place] 1.011 (1.003-1.030) 06/30/22 09:45 Urine Protein <15 mg/dl mg/dL (Negative) 06/30/22 09:45 Urine Glucose (UA) Neg mg/dL (Negative) 06/30/22 09:45 Urine Ketones Neg mg/dL (Negative) 06/30/22 09:45 Urine Blood Neg (Negative) 06/30/22 09:45 Urine Nitrite Neg (Negative) 06/30/22 09:45 Urine Bilirubin Neg (Negative) 06/30/22 09:45 Urine Urobilinogen 2.0 mg/dL (<2.0) 06/30/22 09:45 Ur Leukocyte Esterase Neg (Negative) 06/30/22 09:45 Urine WBC (Auto) < 1.0 /HPF (0.0-6.0) 06/30/22 09:45 Urine RBC (Auto) 1.0 /HPF (0.0-6.0) 06/30/22 09:45 U Epithel Cells (Auto) 1.0 /HPF (0-13.0) 06/30/22 09:45 Urine Bacteria (Auto) 2+ /HPF (Negative) 06/30/22 09:45 Amorphous Crystals 1+ 06/30/22 09:45 Urine Mucus Few /HPF 06/30/22 09:45 Urine Sperm Few /HPF (KEYMODULE ASSEMBLY SUPERVISOR) 06/30/22 09:45 Vancomycin Trough 29.8 ug/mL (5.0-20.0) H 07/03/22 03:53 Acetaminophen 5.0 ug/mL (10.0-30.0) L 07/01/22 00:00 Phenytoin 16.0 ug/mL (10.0-20.0) 06/30/22 23:49 Valproic Acid 71.4 ug/mL (50-100) 06/30/22 23:49 Coronavirus (PCR) Negative (Negative) 07/01/22 09:32 Hepatitis A IgM Ab Non-reactive (NonReactive) 07/01/22 05:06 Hep Bs Antigen Non-reactive (Negative) 07/01/22 05:06 Hep B Core IgM Ab Non-reactive (NonReactive) 07/01/22 05:06 Hepatitis C Antibody Non-reactive (NonReactive) 07/01/22 05:06 Microbiology: Microbiology 06/30/22 23:38 Peripheral/Venous Blood Culture - Preliminary NO GROWTH AFTER 72 HOURS 06/30/22 23:49 Peripheral/Venous Blood Culture - Preliminary NO GROWTH AFTER 72 HOURS Snow/IV: Voiding Method Condom Catheter Active Medications - Current Medications Current Medications: Generic Name Dose Route Start Last Admin Trade Name Freq PRN Reason Stop Dose Admin Acetaminophen 650 mg 07/01/22 02:23 07/02/22 23:10 Acetaminophen 325 Mg Tab PO 650 mg Q4H PRN Administration Pain MILD(1-3)/Fever >100.5/BOWER Albuterol/Ipratropium 1 ampul 07/02/22 20:00 07/04/22 07:59 Ipratropium/Albuterol Sulfate 3 Ml Ampul.Neb IH 1 ampul TIDRT SHILA Administration Apixaban 5 mg 07/02/22 22:00 07/04/22 08:22 Apixaban 5 Mg Tab FEEDTUBE 5 mg Q12HR SHILA Administration Artificial Tears 2 drops 07/01/22 18:08 Hypromellose 0.5% Ophth Soln 15 Ml OU Q4H PRN Dry Eye(s) Aspirin 81 mg 07/03/22 10:00 07/04/22 08:15 Aspirin 81 Mg Tab Chew FEEDTUBE 81 mg QDAY SHILA Administration Diltiazem HCl 120 mg 07/02/22 14:00 07/04/22 05:37 Diltiazem 60 Mg Tab FEEDTUBE 120 mg Q8HR SHILA Administration Lacosamide 200 mg 07/01/22 22:00 07/04/22 08:24 Lacosamide 100 Mg Tab PO 200 mg Q12HR SHILA Administration Levetiracetam 1,500 mg 07/02/22 22:00 07/04/22 08:21 Levetiracetam 500 Mg/5 Ml Oral Liqd FEEDTUBE 1,500 mg BID SHILA Administration Magnesium Hydroxide 30 ml 07/01/22 04:39 07/02/22 04:05 Magnesium Hydroxide (Mom) Oral Liqd Udc PO 30 ml Q4H PRN Administration Constipation Metoclopramide HCl 5 mg 07/02/22 11:00 07/04/22 02:28 Metoclopramide 10 Mg/10 Ml Oral Liqd FEEDTUBE 5 mg Q8H SHILA Administration Metoprolol Tartrate 50 mg 07/03/22 10:00 07/04/22 08:24 Metoprolol Tartrate 50 Mg Tab FEEDTUBE 50 mg DAILY SHILA Administration Naloxone HCl 0.1 mg 07/01/22 02:23 Naloxone 0.4 Mg/1 Ml Inj IV Q2MIN PRN Res Rate </= 8 or 02 SAT < 92% Ondansetron HCl 4 mg 07/01/22 02:23 Ondansetron 4 Mg/2 Ml Inj IV Q8H PRN Nausea And Vomiting Phenytoin 100 mg 07/01/22 22:00 07/04/22 05:38 Phenytoin 100 Mg/4 Ml Oral.Liqd FEEDTUBE 100 mg Q8HR SHILA Administration Scopolamine 1 each 07/01/22 20:00 07/04/22 08:26 Scopolamine Transdermal Patch 72 Hr TD 1 each Q3D SHILA Administration Sodium Chloride 10 ml 07/01/22 10:00 07/03/22 21:44 Sodium Chloride 0.9% 10 Ml Flush Syringe IV 10 ml BID SHILA Administration Sodium Chloride 10 ml 07/01/22 04:39 Sodium Chloride 0.9% 10 Ml Flush Syringe IV PRN PRN LINE FLUSH Topiramate 200 mg 07/01/22 22:00 07/04/22 08:15 Topiramate Tab 200 Mg Tab PO 200 mg BID SHILA Administration Valproic Acid 1,000 mg 07/01/22 22:00 07/04/22 05:38 Valproic Acid 250 Mg/5 Ml Oral Liqd PO 1,000 mg Q8HR SHILA Administration Nutrition/Malnutrition Assess - Dietary Evaluation Nutrition/Malnutrition Findings: Nutrition Notes Start: 07/01/22 13:07 Freq: Status: Active Protocol: Document 07/02/22 12:18 CM (Rec: 07/02/22 12:26 CM [email or web address]) Co-Sign 07/02/22 12:18 WW Nutrition Notes Need for Assessment generated from: business transformation analyst Initial or Follow up Reassessment Current Diagnosis Sepsis Other Pertinent Diagnosis AMS, H/o anoxic brain injury, PEG dependency, trach dependency Current Diet Jevity 1.2 @ 40mL/hr Labs/Tests 07/02: K 3.5 Pertinent Medications 07/02: Reviewed Height 5 ft 11 in Weight 62.4 kg [place] Body Weight (kg) 78.18 BMI 19.1 Weight change and time frame Bed weight taken today. Will monitor for changes. Weight Status Appropriate Subjective/Other Information RD consult for hx of difficulty chewing. Pt currently receiving Jevity 1.2 @ 40mL/hr - formula pt used JOCKEY AGENT. Spoke with RN, , and pt's sister to confirm changing to Osmolite 1.5 at this time. Pt remains on mechanical ventilation with AMS. Abdomen soft, non-tender, BS+ per physical assessment. Burn Absent Trauma Absent GI Symptoms None Difficulty In Swallowing Food Allergy Yes Skin Integrity/Comment WNL per progress notes Current % PO Other Minimum of two criteria No Fluid Accumulation N/A Reduced Tool And Gauge Inspector Strength N/A (non-severe) Protein-Calorie Malnutrition N\A #2 Nutrition Diagnosis Altered nutrition-related laboratory values Diagnosis Progress(for reassessment Continues documentation) #1 Nutrition Diagnosis Swallowing difficulty Diagnosis Progress(for reassessment Continues documentation) Is patient on ventilator? Yes Is Patient Ambulatory and/or Out of Bed No REE-([facility] Gi[facility]j-confined to bed) [phone] Calculation Used for Recommendations [facility] Additional Notes Protein: 0.6-0.8g/kg ABW; 37- 50g PRO q day Fluid: 1mL/kcal or per MD. Nutrition Intervention Nutrition Support: Recommend changing TF to Osmolite 1.5 @ 40mL/hr x 24hrs. Flush with 120mL q 4hr or per MD. Kcal 1,440 Protein (gm) 60 Fluid (mL) 732 % RDI: 75%kcal /120% AA Goal #1 Pt to tolerate >75% of estimated energy/protein needs through enteral nutrition. Follow-Up By: 07/04/22 Additional Comments Monitor TF initiation, GI symptoms, nutrition-related labs, and wt status.
--- NOTE | 2022-07-04 12:39 | Electrocardiograph Report ---
[facility] Test Date: 2022-06-30 Test Time: 21:42:56 Pat Name: JAY SOTO Department: Room: A373 Gender: M Certified Surgical Assistant: NURSE : 1990 Requested By: LASHAUN PIERCE Order Number: [id number] Reading MD: Morales Marie Measurements Intervals [place] Rate: 82 P: MT: QRS: 1 QRSD: 127 T: -12 QT: 465 QTc: 543 Interpretive Statements Atrial fibrillation Nonspecific intraventricular conduction delay ST elevation, consider lateral injury Prolonged QT interval No previous ECG available for comparison baseline artifact Electronically Signed On 07-04-2022 9:39:32 PDT by Morales Marie
[2022-07-04 21:06] VITALS: BP 115/61
== END 2022-07-04 22:57 | disposition home or self-care (01) | DRG 871 ==
LOC: ED 20:02 → 3A 07-01 02:23
PROVIDERS: ADMIT Internal Medicine Geriatric Medicine; ATTEND Student in an Organized Health Care Education/Training Program
DX: A41.9 Sepsis, unspecified organism (principal); G93.41 Metabolic encephalopathy; J69.0 Pneumonitis due to inhalation of food and vomit; K94.23 Gastrostomy malfunction; G93.1 Anoxic brain damage, not elsewhere classified; R94.5 Abnormal results of liver function studies; G40.909 Epilepsy, unspecified, not intractable, without status epilepticus; Z20.822 Contact with and (suspected) exposure to COVID-19
CPT/HCPCS: 36415; 71045; 74177; 80048; 80053; 80061; 80074; 80164; 80185; 80202; 80320; 81001; 82140; 82550; 82962; 83735; 84145; 84484; 85007; 85025; 85379; 85610; 85730; 87040; 87076; 87086; 87186; 93005; 94640; 94760; 96374; 99285; G0378; G0480; J0692; J1644; J2270; J3370; J7030; J7050; J7070; Q9967; U0003